=== PATIENT | female | born 1990 | race Hispanic/Latino ===

== ENCOUNTER 2025-02-16 12:12 | Outpatient (CLI) | payer MEDICAID, SELFPAY ==
--- OUTSIDE RECORDS SUMMARY | 2025-02-16 13:17 | XMS_ITS | Clinical Summary ---
Author Organization [facility] Address [address] [place] [id number] Care Team Providers Care Security System Installer Name Role Phone No, Physician Primary Care Provider [phone] Allergies No known active allergies Medications triamcinolone (KENALOG) 0.1 % ointmentIndicat ions:Vulvar pruritus Apply topically 2 (two) times a day Apply 1-2 times to affected area as needed for itching 30 g 1 Active Active Problems No known active problems Family History Medical History Relation Name Comments No Known Problems Father No Known Problems Mother Relation Name Status Comments Father Mother Social History Tobacco Use Types Packs/Day Years Used Date Smoking Tobacco: Never Personal Safety Answer Date Recorded Getting School Help Needed Not on file 12/21 Comments Unknown Sex and Gender Information Value Date Recorded Sex Assigned at Not on file Legal Sex Female 9:41 AM OPERATIONS ENGINEER Gender Identity Female 11/28/2020 9:46 AM OPERATIONS ENGINEER Sexual Orientation Not on file Obstetrics History Para Term AB IAB SAB Ectopic Multiple Livin g Live Births 3 3 3 3 3 Date Outcome GA Total Labor Labor/2nd/3rd Weight Sex Type Anes PTL Melissa A1 A5 Name Clin 2003 Term F Vag-S pont Living 2008 Term F Vag-S pont Living 2010 Term M Vag-S pont Living Last Filed Vital Signs Vital Sign Reading Time Taken Comments Blood Pressure 126/82 12/15/2020 3:08 PM OPERATIONS ENGINEER Pulse - - Temperature - - Respiratory Rate - - Oxygen Saturation - - Inhaled Oxygen Concentration - - Weight 57.3 kg (126 lb 4 oz) 12/15/2020 3:08 PM OPERATIONS ENGINEER Height 152.4 cm (5') 12/15/2020 3:08 PM OPERATIONS ENGINEER Body Mass Index 24.66 12/15/2020 3:08 PM OPERATIONS ENGINEER Plan of Treatment Not on file Care Teams Security System Installer Relationship Specialty Start Date End Date No, Physician PCP - General 11/28/20
--- OUTSIDE RECORDS SUMMARY | 2025-02-16 13:17 | XMS_ITS | Continuity of Care Document ---
Author Organization [facility] Address [address] [place] [address] Phone Care Team Providers Care Highway Patrol Pilot Name Role Phone Unavailable Unavailable Unavailable Allergies, Adverse Reactions, Alerts Substance Reaction Status Criticality No Known Allergies Active No Inform ation Medications Medication Instructions Dosage Effective Dates (start - stop) Status Comments No Drug Therapy Prescribed Procedures Procedure Date AZITHROMYCIN DIHYDRATE, ORAL, CAPSULES/P OWDER, 1 GRAM OFFICE/OUTPATIENT VISIT, EST Alcohol and/or drug screening 5 URINE TEST, BY VISUAL COLOR CO MPARISON METHODS Results Test Name Date and Time Measure Units Reference Range Abnormal Flag Status Comments Panel Description: CHLAMYDIA/N. GONORRHOEAE RNA, TMA Final CHLAMYDIA TRACHOMATIS RNA, TMA 2014 14:34:0 0 DETECTED NOT DETECTED A Final A positive CT or NG Nucleic Acid Amplification Test(NAAT) result should be interpreted in conjunctionwith other laboratory and clinical data available tothe clinician. If clinically indicated, further testing can be performed on the same sample usingan alternate molecular target. To order alternatetarget test use 44883 (C. trachomatis) [place] 50877 (N. gonorrhoeae). NEISSERIA GONORRHOEAE RNA, TMA 2014 14:34:0 0 NOT DETECTED NOT DETECTED N Final [id number] 2014 14:34:0 0 SEE NOTE Final This test was performed using the APTIMA COMBO2 Assay([employer] The analytical performance characteristics of this assay, when used to test SurePath specimens havebeen determined by [employer]. Test performed at [facility] [id number] [place] [id number]: NATE RASHID DO,MPH Panel Description: Trichomon as vaginalis rRNA [Presence] in Specimen by CHAD with probe detection Final SURESWAB(R) TRICHOMONAS VAGINALIS RNA, QL, TMA 2014 14:34:0 0 NOT DETECTED NOT DETECTED N Final This test was performed using the APTIMA(R) Trichomonasvaginalis assay ([employer]Probe(R)). For more information on this test, go to:http://education.[employer]/f aq/TrichomonastmaTest performed at [facility] [id number] [place] [id number]: NATE RASHID DO,MPH Panel Description: HCG ( Test) - Urine - POC Final - Urine 2014 16:23:1 1 Negative Negative Final Advance Directives Directive Yes / No Effective Date File Name No Information Encounters Encounter Description Practice Location Reason(s) For Visit Diagnoses Date Provider Providers Copied on Encounter OFFICE/OUTPA TIENT VISIT, EST [email or web address], [address], [place], [place], [id number] , tel:[phone] Giuliana On Gala STI exposure (chief complaint) ChlamydiaScreening for alcoholism 5 No Information Family History Family Member Type Diagnosis Age At Onset No Information Payers Payer name Insurance type Covered libertarian ID Authoriza tion(s) No Information Social History Type Description Quantity Date Captured Comments Alcohol Use Details No Caffeine Use Details Unknown Tobacco Use Status Never smoked tobacco 2014 Smoking Status Never smoker Non-Smoking Tobacco Use Details : No Details Available : No Details Available Sex Female Vital Signs Date / Time: Height Weight BMI Pulse Rate Blood Pressure Temperature Respiratory Rate Body Surface Area Head Circumference Head Circ. Percentile Wt./[place]. Percentile BMI percentile Pulse Ox Inhaled Ox 4:01 PM 50.802 kg (112.00 lbs) 66 /min 101/62 mm[Hg] Chief Complaint And Reason For Visit From encounter dated '04/08/2015 15:45'. STI exposure (chief complaint). Description: Patient here because her partner was positive for chlamydia.LMP: 1 month ago.Patient does not use control.Patient denies abnormal vaginal discharge and pelvic pain. Reason For Referral Reason For Referral No Information History Of Present Illness Encounter Date Complaint History Of Prese nt Illness STI exposure Patient here joshua tijer[place] her partner was positive for chlamydia.LMP: 1 month ago.Patient does not use control.Patient denies abnormal vaginal discharge and pelvic pain. Functional Status Date Functional Assessmen t Pain Score 0/10 Medications Administered Medication Instructions Dosage Effective Dates (start - stop) Status Comments No Drug Therapy Prescribed Instructions Date Instruction Additional Infor mation Gonorrhea, chlamydia , trichomonas test ordered today.Chlamydia educational information discussed and handout given.1 G azithromycin given in office today.Avoid sexual intercourse for 7 days. Related to Chlamydia Safe sexual practices discussed with patient. Related to Chlamydia Assessments Type Assessment Date assessment Chlamydia assessment Screening for alcoholism 2014 Mental Status Date Cognitive Assessment Orientation - [place] ed to time, place, person, situation. Patient Care Teams Name Effective Dates (start - stop) Status Members No Information
--- OUTSIDE RECORDS SUMMARY | 2025-02-16 13:17 | XMS_ITS | Referral Summary ---
Author Organization [facility] Address [address] [place] [id number] Care Team Providers Care Sink Maker Name Role Phone No, Physician Primary Care Provider [phone] Allergies No known active allergies Medications triamcinolone (KENALOG) 0.1 % ointmentIndicat ions:Vulvar pruritus Apply topically 2 (two) times a day Apply 1-2 times to affected area as needed for itching 30 g 1 Active Active Problems No known active problems Social History Tobacco Use Types Packs/Day Years Used Date Smoking Tobacco: Never Personal Safety Answer Date Recorded Getting School Help Needed Not on file 12/21 Comments Unknown Sex and Gender Information Value Date Recorded Sex Assigned at Not on file Legal Sex Female 9:41 AM TARGETEER Gender Identity Female 11/28/2020 9:46 AM TARGETEER Sexual Orientation Not on file Last Filed Vital Signs Vital Sign Reading Time Taken Comments Blood Pressure 126/82 12/15/2020 3:08 PM TARGETEER Pulse - - Temperature - - Respiratory Rate - - Oxygen Saturation - - Inhaled Oxygen Concentration - - Weight 57.3 kg (126 lb 4 oz) 12/15/2020 3:08 PM TARGETEER Height 152.4 cm (5') 12/15/2020 3:08 PM TARGETEER Body Mass Index 24.66 12/15/2020 3:08 PM TARGETEER Plan of Treatment Not on file Care Teams Sink Maker Relationship Specialty Start Date End Date No, Physician PCP - General 11/28/20
--- OUTSIDE RECORDS SUMMARY | 2025-02-16 13:17 | XMS_ITS | Data Portability ---
Author Organization SNEHA SILVERDhara Address [address] [place] [address] Assessment No assessment recorded. Plan of Treatment Reminders Order Date Submit Date Provider Last Modified By Organization Details Last Modified Time Details Appointments None recorded . Lab urinalys is, dipstick 2024 025 [email or web address] In-Office Order, Internal Use Only DO Not Attach Compendium DO Not Attach Compendium, Do Not Delete/merge, [id number] 17:46:04 urinalys is, dipstick 2024 025 [email or web address] In-Office Order, Internal Use Only DO Not Attach Compendium DO Not Attach Compendium, Do Not Delete/merge, [id number] 17:39:04 pap, IG + HPV, cervical 2024 025 SARA [facility], [address], [place], [address], 5 11:20:52 vaginal pathogen s panel, CHAD+prob e, vaginal fluid 2024 025 SARA [facility], [address], [place], [address], 5 09:13:20 pregnanc y test, urine 2024 025 In-Office Order, Internal Use Only DO Not Attach Compendium DO Not Attach Compendium, Do Not Delete/merge, [id number] 17:33:31 CBC w/ auto diff 2024 025 [facility], [address], [address], [place], [address], 5 19:08:51 culture, urine 2024 025 [facility], [address], [address], [place], [address], 5 19:08:56 hemoglob in (Hb) electrop horesis, blood 2024 025 [facility], [address], [address], [place], [address], 5 19:08:46 HIV 1 + 2, meaningf ul use set 2024 025 [facility], [address], [place], [address], 5 19:08:57 CFTR mutation , blood or tissue 2024 025 [facility], [address], [place], [address], 5 19:08:50 aneuploi dy risk and X & Y analysis , chromoso me specific circulat ing cell free (CCF) DNA, maternal serum 2024 025 [facility], [address], [place], [address], 5 19:09:00 abo group + rh type, blood 2024 025 SARA [facility], [address], [place], [address], 5 19:08:52 drug screen, 5 drugs, urine [address], [address], [place], [address], 5 15:46:16 rubella IgG Ab, quant immunoas say, serum or plasma 2024 025 [facility], [address], [place], [address], 5 19:08:54 RPR (rapid plasma reagin), serum 2024 025 [facility], [address], [place], [address], 5 19:08:53 varicell a zoster virus IgG Ab, QL, IA, serum 2024 025 [facility], [address], [place], [address], 5 19:08:58 vaginal pathogen s panel, CHAD+prob e, vaginal fluid 2024 025 [facility], [address], [place], [address], 5 19:08:48 hepatiti s panel (A+B+C), acute, serum 2024 025 [facility], [address], [place], [address], 5 19:08:47 urinalys is, dipstick 2024 025 In-Office Order, Internal Use Only DO Not Attach Compendium DO Not Attach Compendium, Do Not Delete/merge, [id number] 17:45:27 unlisted lab - nuswab bv, CT/GC/TV 2023 024 [facility], [address], [place], [address], 4 08:25:58 pap, IG + reflex HPV 2023 024 [facility], [address], [place], [address], 4 15:10:37 ESR (erythro cyte sediment ation rate), blood 2022 023 [facility], [address], [place], [address], 3 13:10:20 vitamin D, 25-hydro xy, total, serum 2022 023 [facility], [address], [place], [address], 3 13:10:22 JOSI (antinuc lear antibodi es) screen, serum 2022 023 [facility], [address], [place], [address], 3 13:10:19 CBC 2022 023 [facility], [address], [place], [address], 3 13:10:21 CMP, serum or plasma 2022 023 [facility], [address], [place], [address], 3 13:10:19 Referral obstetri blas referral 2024 025 SARA Shukla MD, [address], [address], [place], [address], 5 04:14:52 maternal & medicine referral - Genetic counseli ng 2024 025 [email or web address] [facility], [address] [place], [address], 14:33:44 Procedures None recorded . Surgeries None recorded . Imaging US, obstetri c, 1st trimeste r 2024 025 [facility] ([facility]), [address] [place], [address], 5 15:00:33 Medication Orders ondanset pepe 8 mg disinteg rating tablet 2024 025 [id number], [address], [place], [id number], 5 17:39:10 ondanset pepe 4 mg disinteg rating tablet 2024 025 [facility][id number], [address], [place], [id number], 5 17:46:46 28 mg iron-800 mcg tablet 2024 025 [facility] #[id number], [address], [place], [id number], 5 17:33:36 naproxen 500 mg tablet 2022 023 [facility][id number], [address], [place], [id number], 5 17:00:23 Patient TargetsNo targets recorded. Patient Instructions Encounter Date Encounter Id Patient Instructions Last Modified By Organization Details Last Modified Time 08/05/2023 [id number] subha laurent el peso saludable - [learning about healthy weight] [email or web address] Not available 08/05/2023 14:43:15 A healthy lifestyle: care instructions [email or web address] Not available 08/05/2023 14:43:45 11/03/2024 [id number] N useas y v deangelo: instrucciones de cuidado - [nausea and vomiting: care instructions] [email or web address] Not available 11/03/2024 17:46:40 A healthy lifestyle: care instructions [email or web address] Not available 11/03/2024 17:33:31 Edad materna avanzada: Instrucciones de cuidado - [ After Age 35: Care Instructions] [email or web address] Not available 11/03/2024 17:33:31 --Discussed with Dr. Cande che Not available 11/24/2024 16:29:36 11/24/2024 [id number] A healthy lifestyle: care instructions Not available 11/24/2024 17:39:04 --Discussed with Dr. Cande che Not available 11/25/2024 18:22:41 01/13/2025 [id number] A healthy lifestyle: care instructions [email or web address] Not available 01/13/2025 17:45:18 Reason for Referral Maternal & Medicine Re ferral for Advanced maternal age Genetic counseling Referring Physician: [facility], Encounter Date: 11/03/2024 [employer] Technologist Referral for [place] care Referring Physician: Zurdo Raymond [facility], Encounter Date: 01/13/2025 Results Created Date Observation Date Name Description Value Unit Range Abnormal Flag Note LastModifiedBy Organization Detail LastModifiedTime 08/05/2008/06/2023 JOSI W/REF BUCK JOSI direct Negati ve negati ve Not Available [facility] ([facility]) [address] [place], [address], 08/06/2023 13:10:19 08/05/20 23 08/06/2023 COMP. METAB OLIC PANEL (14) glucose 85 mg/dL 70-99 Not Available [facility] ([facility]) [address] [place], [address], 08/06/2023 13:10:19 08/05/20 23 08/06/2023 COMP. METAB OLIC PANEL (14) BUN 14 mg/dL 6-20 Not Available [facility] ([facility]) [address] [facility] [place], [address], 08/06/2023 13:10:19 08/05/20 23 08/06/2023 COMP. METAB OLIC PANEL (14) creatinine 0.59 mg/dL 0.57-1 .00 Not Available [facility] ([facility]) [address] [facility] [place], [address], 08/06/2023 13:10:19 08/05/20 23 08/06/2023 COMP. METAB OLIC PANEL (14) eGFR 121 mL/mi n/1.7 3 >59 Not Available [facility] ([facility]) [address] [facility] [place], [address], 08/06/2023 13:10:19 08/05/20 23 08/06/2023 COMP. METAB OLIC PANEL (14) BUN/creatini ne ratio 24 9-23 above high normal Not Available [facility] ([facility]) [address] [facility] [place], [address], 08/06/2023 13:10:19 08/05/20 23 08/06/2023 COMP. METAB OLIC PANEL (14) sodium 140 mmol/ L 134-14 4 Not Available [facility] ([facility]) [address] [place], [address], 08/06/2023 13:10:19 08/05/20 23 08/06/2023 COMP. METAB OLIC PANEL (14) potassium 4.0 mmol/ L 3.5-5. 2 Not Available [facility] ([facility]) [address] [place], [address], 08/06/2023 13:10:19 08/05/20 23 08/06/2023 COMP. METAB OLIC PANEL (14) chloride 102 mmol/ L 96-106 Not Available [facility] ([facility]) [address] [place], [address], 08/06/2023 13:10:19 08/05/20 23 08/06/2023 COMP. METAB OLIC PANEL (14) carbon dioxide, total 23 mmol/ L 20- Not Available [facility] ([facility]) [address], [place], [address], 08/06/2023 13:10:19 08/05/20 23 08/06/2023 COMP. METAB OLIC PANEL (14) calcium 8.9 mg/dL 8.7-10 .2 Not Available [facility] ([facility]) [address] [facility] [place], [address], 08/06/2023 13:10:19 08/05/20 23 08/06/2023 COMP. METAB OLIC PANEL (14) protein, total 7.0 g/dL 6.0-8. 5 Not Available [facility] ([facility]) [address] [facility], [place], [address], 08/06/2023 13:10:19 08/05/20 23 08/06/2023 COMP. METAB OLIC PANEL (14) albumin 4.2 g/dL 3.9-4. 9 Not Available [facility] ([facility]) [address] [facility], [place], [address], 08/06/2023 13:10:19 08/05/20 23 08/06/2023 COMP. METAB OLIC PANEL (14) globulin, total 2.8 g/dL 1.5-4. 5 Not Available [facility] ([facility]) [address] [facility] [place], [address], 08/06/2023 13:10:19 08/05/20 23 08/06/2023 COMP. METAB OLIC PANEL (14) A/G ratio 1.5 1.2-2. 2 Not Available [facility] ([facility]) [address] [facility], [place], [address], 08/06/2023 13:10:19 08/05/20 23 08/06/2023 COMP. METAB OLIC PANEL (14) bilirubin, total <0.2 mg/dL 0.0-1. 2 Not Available [facility] ([facility]) [address] [facility], [place], [address], 08/06/2023 13:10:19 08/05/2008/06/2023 COMP. METAB OLIC PANEL (14) alkaline phosphatase 64 IU/L 44-121 Not Available [facility] ([facility]) [address] [facility], [place], [address], 08/06/2023 13:10:19 08/05/2008/06/2023 COMP. METAB OLIC PANEL (14) AST (SGOT) 23 IU/L 0-40 Not Available [facility] ([facility]) [address] [facility], [place], [address], 08/06/2023 13:10:19 08/05/2008/06/2023 COMP. METAB OLIC PANEL (14) ALT (SGPT) 15 IU/L 0-32 Not Available [facility] ([facility]) [address] [facility], [place], [address], 08/06/2023 13:10:19 08/05/2008/06/2023 SEDIM ENTAT ION RATE- WESTE RGREN sedimentatio n rate-huyenerg meghan 12 mm/HR 0-32 Not Available [facility] ([facility]) [address] [facility], [place], [address], 08/06/2023 13:10:20 08/05/2008/06/2023 CBC, PLATE LET, NO DIFFE RENTI AL WBC 8.7 x10e3 /uL 3.4-10 .8 Not Available [facility] ([facility]) [address] [facility], [place], [address], 08/06/2023 13:10:21 08/05/2008/06/2023 CBC, PLATE LET, NO DIFFE RENTI AL RBC 4.23 x10e6 /uL 3.77-5 .28 Not Available [facility] ([facility]) [address] [facility], [place], [address], 08/06/2023 13:10:21 08/05/2008/06/2023 CBC, PLATE LET, NO DIFFE RENTI AL hemoglobin 12.2 g/dL 11.1-1 5.9 Not Available [facility] ([facility]) [address] [facility], [place], [address], 08/06/2023 13:10:21 08/05/2008/06/2023 CBC, PLATE LET, NO DIFFE RENTI AL hematocrit 36.9 % 34.0-4 6.6 Not Available [facility] ([facility]) [address] [facility], [place], [address], 08/06/2023 13:10:21 08/05/2008/06/2023 CBC, PLATE LET, NO DIFFE RENTI AL MCV 87 fL 79-97 Not Available [facility] ([facility]) [address] [facility], [place], [address], 08/06/2023 13:10:21 08/05/2008/06/2023 CBC, PLATE LET, NO DIFFE RENTI AL MCH 28.8 pg 26.6-3 3.0 Not Available [facility] ([facility]) [address] [place], [address], 08/06/2023 13:10:21 08/05/2008/06/2023 CBC, PLATE LET, NO DIFFE RENTI AL MCHC 33.1 g/dL 31.5-3 5.7 Not Available [facility] ([facility]) [address] [facility], [place], [address], 08/06/2023 13:10:21 08/05/2012 0808/06/2023 CBC, PLATE LET, NO DIFFE RENTI AL RDW 12.4 % 11.7-1 5.4 Not Available [facility] ([facility]) [address] [facility], [place], [address], 08/06/2023 13:10:21 08/05/20 23 08/06/2023 CBC, PLATE LET, NO DIFFE RENTI AL platelets 259 x10e3 /uL 150-45 0 Not Available [facility] ([facility]) [address] [facility], [place], [address], 08/06/2023 13:10:21 08/05/2008/06/2023 VITAM IN D, 25-HY DROXY vitamin D, 25-hydroxy 22.1 NG/mL 30.0-1 00.0 below low normal Vitam in D defic iency has been defin ed by the Insti tute of Medic ine and an Endoc rine Socie ty pract ice guide line as a level of serum 25-OH vitam in D less than 20 ng/mL (1,2) . The Endoc rine Socie ty went on to furth er defin e vitam in D insuf ficie ncy as a level betwe en 21 and 29 ng/mL (2). 1. IOM (Inst itute of Medic ine). 2009. Dieta ry refer ence intak es for calci um and D. Erlinda bledsoe [place]: The [facility] . 2. Ed mccall MF, Jose steinberg [place], Zaheer off-F errar i AGUIAR, et al. Evalu ation , treat ment, and preve ntion of vitam in D defic iency : an Endoc rine Socie ty clini [place]or[place] pract ice guide line. JCEM. 2010; 96(7) :1911 -30. Not Available [facility] ([facility]) [address] [facility], [place], [address], 08/06/2023 13:10:22 01/07/20 24 01/08/2024 NUSWA B BV, CT/GC /TV atopobium vaginae Low - 0 score Not Available [facility] ([facility]) [address] [facility], [place], [address], 01/09/2024 08:25:58 01/07/20 24 01/08/2024 NUSWA B BV, CT/GC /TV bvab 2 Low - 0 score Not Available [facility] ([facility]) [address] [facility], [place], [address], 01/09/2024 08:25:58 01/07/20 24 01/08/2024 NUSWA B BV, CT/GC /TV megasphaera 1 Low - 0 score Calcu late total score by jomar power the 3 indiv idual bacte rial vagin osis (BV) marke r score s toget her. Total score is inter prete d as follo ws: Total score 0-1: Indic ates the absen ce of BV. Total score 2: Indet ermin ate for BV. Addit ional clini victorino data shoul d be evalu ated to estab maryjane a diagn osis. Total score 3-6: Indic ates the prese nce of BV. This test was devel oped and its perfo rmanc e vasyl cteri stics deter mined by [facility]. It has not been clear ed or appro justus by the Food and Drug Admin istra tion. Not Available [facility] ([facility]) [address] [facility], [place], [address], 01/09/2024 08:25:58 01/07/20 24 01/09/2024 NUSWA B BV, CT/GC /TV trich vag by CHAD Negati ve negati ve Not Available [facility] ([facility]) [address] [facility], [place], [address], 01/09/2024 08:25:58 01/07/20 24 01/09/2024 NUSWA B BV, CT/GC /TV chlamydia trachomatis, CHAD Negati ve negati ve Not Available [facility] ([facility]) [address] [facility], [place], [address], 01/09/2024 08:25:58 01/07/20 24 01/09/2024 NUSWA B BV, CT/GC /TV neisseria gonorrhoeae, CHAD Negati ve negati ve Not Available [facility] ([facility]) [address] [facility], [place], [address], 01/09/2024 08:25:58 01/07/20 24 01/07/2024 IGP,A PTIMA HPV,A GE GDLN age gdln acog testing 30-65 Not Available [facility] ([facility]) [address] [facility], [place], [address], 01/09/2024 15:10:37 01/07/20 24 01/09/2024 IGP, APTIM A HPV, RFX 16/18 ,45 diagnosis: Commen t NEGAT HANNAH FOR INTRA EPITH ELIAL LESIO N OR CLAUDIA BARKER . Not Available [facility] ([facility]) [address] [facility], [place], [address], 01/09/2024 15:10:37 01/07/20 24 01/09/2024 IGP, APTIM A HPV, RFX 16/18 ,45 specimen adequacy: Commen t Satis facto ry for evalu ation . Endoc ervic al and/o r squam ous metap lasti c cells (endo cervi victorino compo nent) are prese nt. Not Available [facility] ([facility]) [address] [facility], [place], [address], 01/09/2024 15:10:37 01/07/20 24 01/09/2024 IGP, APTIM A HPV, RFX 16/18 ,45 clinician provided ICD10: Commen t Z11.3 Z12.4 Not Available [facility] ([facility]) [address] [place], [address], 01/09/2024 15:10:37 01/07/20 24 01/09/2024 IGP, APTIM A HPV, RFX 16/18 ,45 performed by: Nasim Koehler Not Available [facility] ([facility]) [address] [place], [address], 01/09/2024 15:10:37 01/07/20 24 01/09/2024 IGP, APTIM A HPV, RFX 16/18 ,45 . . Not Available [facility] ([facility]) [address] [place], [address], 01/09/2024 15:10:37 01/07/20 24 01/09/2024 IGP, APTIM A HPV, RFX 16/18 ,45 note: Carole parisi The Pap smear is a scree art test desig slim to aid in the detec tion of kimberlee ligna nt and malig nant condi tions of the uteri ne cervi x. It is not a diagn ostic proce dure and shoul d not be used as the sole means of detec ting cervi victorino cance r. Both false -posi tive and false -nega tive repor ts do occur . Not Available [facility] ([facility]) [address] [place], [address], 01/09/2024 15:10:37 01/07/20 24 01/09/2024 IGP, APTIM A HPV, RFX 16/18 ,45 test methodology: Carole parisi This liqui d based ThinP rep(R ) pap test was scree slim with the use of an image guide anastasiia aranda. Not Available [facility] ([facility]) [address] [place], [address], 01/09/2024 15:10:37 01/07/20 24 01/09/2024 IGP, APTIM A HPV, RFX 16/18 ,45 HPV aptima Negati ve negati ve This nucle ic acid ampli ficat ion test detec ts fourt een high- risk HPV types (16,1 8,31, 33,35 ,39,4 5,51, 52,56 ,58,5 9,66, 68) witho ut diffe renti ation . Not Available [facility] ([facility]) [address] [facility], [place], [address], 01/09/2024 15:10:37 01/07/20 24 01/09/2024 IGP, APTIM A HPV, RFX 16/18 ,45 HPV genotype reflex Commen t Crite kimmie not met, HPV Genot ype not perfo rmed. Not Available [facility] ([facility]) [address] [facility], [place], [address], 01/09/2024 15:10:37 11/03/19 25 11/04/2024 SPECI MEN STATU S REPOR T specimen status report TNP Test not perfo rmed. No laven michell top tube submi tted. TEST: 46589 9 CBC With Diffe renti al/[place] t 495[address] 5 Cysti c Fibro sis, 97 [place] [address] 0 [place] [address] 9 ABO Group ing and Rho(D ) Typin g Not Available [facility] ([facility]) [address] [facility], [place], [address], 11/10/2024 19:08:43 11/03/19 25 11/04/[address] PROBL EM request problem TNP Test not perfo rmed. No serum gel recei justus. TEST: 82076 0 Acute Hepat itis 03879 7 Rubel la Antib odies , [place] [address] 5 HIV Ab/p2 4 Ag with Refle x 53379 6 Varic sheri- Zoste r V Ab, IgG 23789 2 RPR Not Available [facility] ([facility]) [address] [place], [address], 11/10/2024 19:08:44 11/03/19 25 11/04/[address] PROBL EM request problem TNP Test not perfo rmed. No urine speci men recei justus. TEST: 23739 2 81928 2 5 Drug- Scr Not Available [facility] ([facility]) [address] [place], [address], 11/10/2024 19:08:45 11/03/19 25 11/04/2024 HGB FRACT IONAT ION CASCA DE HGB F - % Test not perfo rmed. No laven michell top tube submi tted. Not Available [facility] ([facility]) [address] [facility], [place], [address], 11/10/2024 19:08:46 11/03/19 25 11/04/2024 HGB FRACT IONAT ION CASCA DE HGB A - Test not perfo rmed Not Available [facility] ([facility]) [address] [facility], [place], [address], 11/10/2024 19:08:46 11/03/19 25 11/04/2024 HGB FRACT IONAT ION CASCA DE HGB A2 - Test not perfo rmed Not Available [facility] ([facility]) [address] [place], [address], 11/10/2024 19:08:46 11/03/19 25 11/04/2024 HGB FRACT IONAT ION CASCA DE HGB S - Test not perfo rmed Not Available [facility] ([facility]) [address] [place], [address], 11/10/2024 19:08:46 11/03/19 25 11/04/2024 ACUTE HEPAT ITIS hep A Ab, IgM - Test not perfo rmed. No serum gel recei justus. Not Available [facility] ([facility]) [address] [place], [address], 11/10/2024 19:08:47 11/03/19 25 11/04/2024 ACUTE HEPAT ITIS HBsAg screen - Test not perfo rmed Not Available [facility] ([facility]) [address] [facility], [place], [address], 11/10/2024 19:08:47 11/03/19 25 11/04/2024 ACUTE HEPAT ITIS hep B core Ab, IgM - Test not perfo rmed Not Available [facility] ([facility]) [address] [facility], [place], [address], 11/10/2024 19:08:47 11/03/19 25 11/04/2024 ACUTE HEPAT ITIS HCV Ab - Test not perfo rmed Not Available [facility] ([facility]) [address] [facility], [place], [address], 11/10/2024 19:08:47 11/03/19 25 11/04/2024 NUSWA B VAGIN ITIS PLUS (VG+) atopobium vaginae LOW - 0 score Not Available [facility] ([facility]) [address] [facility], [place], [address], 11/10/2024 19:08:48 11/03/19 25 11/04/2024 NUSWA B VAGIN ITIS PLUS (VG+) bvab 2 LOW - 0 score Not Available [facility] ([facility]) [address] [place], [address], 11/10/2024 19:08:48 11/03/19 25 11/04/2024 NUSWA B VAGIN ITIS PLUS (VG+) megasphaera 1 LOW - 0 score Calcu late total score by jomar g the 3 indiv idual bacte rial vagin osis (BV) marke r score s toget her. Total score is inter prete d as follo ws: Total score 0-1: Indic ates the absen ce of BV. Total score 2: Indet ermin ate for BV. Addit ional clini victorino data shoul d be evalu ated to estab maryjane a diagn osis. Total score 3-6: Indic ates the prese nce of BV. Not Available [facility] ([facility]) [address] [facility], [place], [address], 11/10/2024 19:08:48 11/03/19 25 11/04/2024 NUSWA B VAGIN ITIS PLUS (VG+) renetta albicans, CHAD NEGATI VE negati ve Not Available [facility] ([facility]) [address] [facility], [place], [address], 11/10/2024 19:08:48 11/03/19 25 11/04/2024 NUA B VAGIN ITIS PLUS (VG+) renetta glabrata, CHAD NEGATI VE negati ve Not Available [facility] ([facility]) [address] [facility], [place], [address], 11/10/2024 19:08:48 11/03/19 25 11/04/2024 NUA B VAGIN ITIS PLUS (VG+) trich vag by CHAD NEGATI VE negati ve Not Available [facility] ([facility]) [address] [place], [address], 11/10/2024 19:08:48 11/03/19 25 11/04/2024 NUA B VAGIN ITIS PLUS (VG+) chlamydia trachomatis, CHAD NEGATI VE negati ve Not Available [facility] ([facility]) [address] [place], [address], 11/10/2024 19:08:48 11/03/19 25 11/04/2024 NUA B VAGIN ITIS PLUS (VG+) neisseria gonorrhoeae, CHAD NEGATI VE negati ve Not Available [facility] ([facility]) [address] [place], [address], 11/10/2024 19:08:48 11/03/19 25 11/04/2024 CYSTI C FIBRO SIS, 97 VARIA NTS ethnicity TNP Test not perfo rmed. No laven michell top tube submi tted. Not Available [facility] ([facility]) [address] [facility], [place], [address], 11/10/2024 19:08:49 11/03/1911/04/2024 CYSTI C FIBRO SIS, 97 VARIA NTS result: - Test not perfo rmed Not Available [facility] ([facility]) [address] [facility], [place], [address], 11/10/2024 19:08:49 11/03/19 25 11/04/2024 CBC WITH DIFFE RENTI AL/PL ATELE T WBC - x10e3 /uL Test not perfo rmed. No laven michell top tube submi tted. Not Available [facility] ([facility]) [address] [facility], [place], [address], 11/10/2024 19:08:51 11/03/19 25 11/04/2024 CBC WITH DIFFE RENTI AL/PL ATELE T RBC - Test not perfo rmed Not Available [facility] ([facility]) [address] [place], [address], 11/10/2024 19:08:51 11/03/19 25 11/04/2024 CBC WITH DIFFE RENTI AL/PL ATELE T hemoglobin - Test not perfo rmed Not Available [facility] ([facility]) [address] [place], [address], 11/10/2024 19:08:51 11/03/1911/04/2024 CBC WITH DIFFE RENTI AL/PL ATELE T hematocrit - Test not perfo rmed Not Available [facility] ([facility]) [address] [place], [address], 11/10/2024 19:08:51 11/03/19 25 11/04/2024 CBC WITH DIFFE RENTI AL/PL ATELE T platelets - Test not perfo rmed Not Available [facility] ([facility]) [address] [facility] [place], [address], 11/10/2024 19:08:51 11/03/19 25 11/04/2024 CBC WITH DIFFE RENTI AL/PL ATELE T neutrophils - Test not perfo rmed Not Available [facility] ([facility]) [address] [facility], [place], [address], 11/10/2024 19:08:51 11/03/19 25 11/04/2024 CBC WITH DIFFE RENTI AL/PL ATELE T lymphs - Test not perfo rmed Not Available [facility] ([facility]) [address] [facility], [place], [address], 11/10/2024 19:08:51 11/03/19 25 11/04/2024 CBC WITH DIFFE RENTI AL/PL ATELE T monocytes - Test not perfo rmed Not Available [facility] ([facility]) [address] [facility], [place], [address], 11/10/2024 19:08:51 11/03/19 25 11/04/2024 CBC WITH DIFFE RENTI AL/PL ATELE T eos - Test not perfo rmed Not Available [facility] ([facility]) [address] [facility], [place], [address], 11/10/2024 19:08:51 11/03/19 25 11/04/2024 CBC WITH DIFFE RENTI AL/PL ATELE T lymphs (absolute) - Test not perfo rmed Not Available [facility] ([facility]) [address] [facility], [place], [address], 11/10/2024 19:08:51 11/03/19 25 11/04/2024 CBC WITH DIFFE RENTI AL/PL ATELE T eos (absolute) - Test not perfo rmed Not Available [facility] ([facility]) [address] [facility], [place], [address], 11/10/2024 19:08:51 11/03/19 25 11/04/2024 CBC WITH DIFFE RENTI AL/PL ATELE T baso (absolute) - Test not perfo rmed Not Available [facility] ([facility]) [address] [facility], [place], [address], 11/10/2024 19:08:51 11/03/19 25 11/04/2024 ABO GROUP ING AND RHO(D ) TYPIN G ABO grouping - Test not perfo rmed. No laven michell top tube submi tted. Not Available [facility] ([facility]) [address] [place], [address], 11/10/2024 19:08:52 11/03/19 25 11/04/2024 ABO GROUP ING AND RHO(D ) TYPIN G Rh factor - Test not perfo rmed Not Available [facility] ([facility]) [address] [place], [address], 11/10/2024 19:08:52 11/03/19 25 11/04/2024 RPR RPR - Test not perfo rmed. No serum gel recei justus. Not Available [facility] ([facility]) [address] [place], [address], 11/10/2024 19:08:53 11/03/19 25 11/04/2024 RUBEL LA ANTIB ODIES , IGG rubella antibodies, IgG - index Test not perfo rmed. No serum gel recei justus. Non-i mmune <0.90 Equiv ocal 0.90 - 0.99 Immun e >0.99 Not Available [facility] ([facility]) [address] [place], [address], 11/10/2024 19:08:54 11/03/19 25 11/06/2024 URINE CULTU RE,CO MPREH ENSIV E urine culture,comp rehensive FINAL REPORT Not Available [facility] ([facility]) [address] [place], [address], 11/10/2024 19:08:56 11/03/19 25 11/06/2024 URINE CULTU RE,CO MPREH ENSIV E result 1 COMMEN T No growt h in 36 - 48 hours . Not Available [facility] ([facility]) [address] [facility], [place], [address], 11/10/2024 19:08:56 11/03/19 25 11/04/2024 HIV AB/P2 4 AG WITH REFLE X HIV Ab/P24 Ag screen - Test not perfo rmed. No serum gel recei justus. Not Available [facility] ([facility]) [address] [facility], [place], [address], 11/10/2024 19:08:57 11/03/19 25 11/04/2024 VARIC SHERI- ZOSTE R V AB, IGG varicella zoster IgG - Test not perfo rmed. No serum gel recei justus. Ple ase note refer ence inter yony inman e A React hannah resul t is consi dered evide nce of immun ity to VZV. React hannah indic ates that VZV IgG was detec evelina consi stent with previ ous infec tion and/o r vacci natio n. A Non React hannah resul t indic ates that VZV IgG was not detec evelina sugge sting that immun ity has not been acqui red. Not Available [facility] ([facility]) [address] [facility], [place], [address], 11/10/2024 19:08:58 11/03/19 25 11/03/2024 urina lysis , dipst ick Leukocytes Negati ve Not Available In-Office Order Internal Use Only DO Not Attach Compendium DO Not Attach Compendium, Do Not Delete/merge, [id number] 11/03/2024 17:32:01 11/03/19 25 11/03/2024 urina lysis , dipst ick Nitrite negati ve Not Available In-Office Order Internal Use Only DO Not Attach Compendium DO Not Attach Compendium, Do Not Delete/merge, 11/03/2024 17:32:01 11/03/1911/03/2024 urina lysis , dipst ick Urobilinogen .2 Not Available In-Of fice Order Internal Use Only DO Not Attach Compendium DO Not Attach Compendium, Do Not Delete/merge, 11/03/2024 17:32:01 11/03/1911/03/2024 urina lysis , dipst ick Protein Negati ve Not Available In-Office Order Internal Use Only DO Not Attach Compendium DO Not Attach Compendium, Do Not Delete/merge, 11/03/2024 17:32:01 11/03/19 25 11/03/2024 urina lysis , dipst ick pH 6.5 Not Available In-Office Order Internal Use Only DO Not Attach Compendium DO Not Attach Compendium, Do Not Delete/merge, 11/03/2024 17:32:01 11/03/19 25 11/03/2024 urina lysis , dipst ick Blood Negati ve Not Available In-Office Order Internal Use Only DO Not Attach Compendium DO Not Attach Compendium, Do Not Delete/merge, 11/03/2024 17:32:01 11/03/19 25 11/03/2024 urina lysis , dipst ick Specific [place] 1.030 Not Available In-Off ice Order Internal Use Only DO Not Attach Compendium DO Not Attach Compendium, Do Not Delete/merge, 11/03/2024 17:32:01 11/03/19 25 11/03/2024 urina lysis , dipst ick Ketone Negati ve Not Available In-Office Order Internal Use Only DO Not Attach Compendium DO Not Attach Compendium, Do Not Delete/merge, 11/03/2024 17:32:01 11/03/19 25 11/03/2024 urina lysis , dipst ick Bilirubin Negati ve Not Available In-Office Order Internal Use Only DO Not Attach Compendium DO Not Attach Compendium, Do Not Delete/merge, 11/03/2024 17:32:01 01/14/11/03/2024 urina lysis , dipst ick Glucose Negati ve Not Available In-Office Order Internal Use Only DO Not Attach Compendium DO Not Attach Compendium, Do Not Delete/merge, 11/03/2024 17:32:01 11/03/19 25 11/03/2024 urina lysis , dipst ick Appearance Clear Not Available In-Offi ce Order Internal Use Only DO Not Attach Compendium DO Not Attach Compendium, Do Not Delete/merge, 11/03/2024 17:32:01 11/03/19 25 11/03/2024 urina lysis , dipst ick Color Yellow Not Available In-Office Order Internal Use Only DO Not Attach Compendium DO Not Attach Compendium, Do Not Delete/merge, 11/03/2024 17:32:01 11/03/1911/03/2024 pregn mary beth test, urine HCG positi ve Not Available In-Office Order Internal Use Only DO Not Attach Compendium DO Not Attach Compendium, Do Not Delete/merge, 11/03/2024 17:12:57 11/05/1911/09/2024 MATER NIT21 PLUS CORE gestation SINGLE TON Not Available [facility] ([facility]) [address] [place], [address], 11/09/2024 19:09:00 11/05/19 25 11/09/2024 MATER NIT21 PLUS CORE fraction 29% Not Available [facility] ([facility]) [address] [place], [address], 11/09/2024 19:09:00 11/05/19 25 11/09/2024 MATER NIT21 PLUS CORE gestational age > or = 9W: YES Not Available [facility] ([facility]) [address] [place], [address], 11/09/2024 19:09:00 11/05/19 25 11/09/2024 MATER NIT21 PLUS CORE test result NEGATI VE Not Available [facility] ([facility]) [address] [place], [address], 11/09/2024 19:09:00 11/05/19 25 11/09/2024 MATER NIT21 PLUS CORE lab systems analyst comments CAROLE Farmer speci men showe d an expec evelina repre senta tion of chrom osome 21, 18 and 13 mater ial. [facility] corre latio n is sugguille ricod. Not Available [facility] ([facility]) [address] [facility], [place], [address], 11/09/2024 19:09:00 11/05/19 25 11/09/2024 MATER NIT21 PLUS CORE approved by CAROLE edmondson MD, PhD, [facility], [place] Labor atori es Not Available [facility] ([facility]) [address] [facility], [place], [address], 11/09/2024 19:09:00 11/05/19 25 11/09/2024 MATER NIT21 PLUS CORE trisomy 21 (down syndrome) NEGATI VE Not Available [facility] ([facility]) [address] [facility], [place], [address], 11/09/2024 19:09:00 11/05/19 25 11/09/2024 MATER NIT21 PLUS CORE trisomy 18 (smith syndrome) NEGATI VE Not Available [facility] ([facility]) [address] [place], [address], 11/09/2024 19:09:00 11/05/19 25 11/09/2024 MATER NIT21 PLUS CORE trisomy 13 (patau syndrome) NEGATI VE Not Available [facility] ([facility]) [address] [facility], [place], [address], 11/09/2024 19:09:00 11/05/19 25 11/09/2024 MATER NIT21 PLUS CORE sex CAROLE Parisi Consi stent with Male Not Available [facility] ([facility]) [address] [place], [address], 11/09/2024 19:09:00 11/05/19 25 11/09/2024 MATER NIT21 PLUS CORE negative predictive value NOTE The Negat hannah Predi ctive Value (NPV) for triso my 21, 18, and 13 is great er than 99%. The NPV for SCA and ESS canno t be calcu lated as SCA and ESS are only repor evelina when an abnor malit y is detec evelina. Not Available [facility] ([facility]) [address] [facility], [place], [address], 11/09/2024 19:09:00 11/05/19 25 11/09/2024 MATER NIT21 PLUS CORE positive predictive value N/A Not Available [facility] ([facility]) [address] [facility], [place], [address], 11/09/2024 19:09:00 11/05/19 25 11/09/2024 MATER NIT21 PLUS CORE about the test COMMEN T The Mater niT(R ) 21 PLUS labor atory -deve loped test (LDT) galina zes circu latin g cell- free DNA from a mater nal blood sampl e. This test is used for scree art purpo ses and not diagn ostic . [facility] corre latio n is recom xenia d. Valid ation data on twin pregn ancie s is limit ed and the abili ty of this test to detec t aneup loidy in highe r multi ple gesta tions has not yet been valid ated. Not Available [facility] ([facility]) [address] [facility], [place], [address], 11/09/2024 19:09:00 11/05/19 25 11/09/2024 MATER NIT21 PLUS CORE test method COMMEN T See Notes Circu latin g cell- free DNA was purif ied from the plasm a compo nent of mater nal blood . The extra cted DNA was then conve rted into a mktg DNA ken ry for aneup loidy galina sis of chrom osome s 21, 18, and 13 via next gener ation seque ncing .[1] Optio nal findi ngs based on the test order inclu de sex chrom osome aneup loidy (SCA) [2], and enhan antonio seque ncing serie s (ESS) [3], which will only be repor evelina on as an addit ional findi ng when an abnor malit y is detec evelina. SCA testi ng inclu demetrio infor matio n on X and Y repre senta tion, while ESS testi ng inclu demetrio delet ions in selec evelina regio ns (22q, 15q, 11q, 8q, 5p, 4p, 1p) and triso my of chrom osome s 16 and 22. Not Available [facility] ([facility]) [address] [facility], [place], [address], 11/09/2024 19:09:00 11/05/19 25 11/09/2024 MATER NIT21 PLUS CORE performance COMMEN T The perfo rmanc e vasyl cteri stics of the Mater niT(R ) 21 PLUS labor atory -deve loped test (LDT) have been deter mined in a clini victorino valid ation study with pregn ant women at incre ased risk for chrom osoma l aneup loidy .[1-4 ] Not Available [facility] ([facility]) [address] [facility], [place], [address], 11/09/2024 19:09:00 11/05/1911/09/2024 MATER NIT21 PLUS CORE performance characterist ics NOTE ----- ----- ----- ----- ----- ----- ----- ----- ----- ----- ----- ---- ! Sex ! Accur acy: 99.4% ! !---- ----- ----- ----- ----- ----- ----- ----- ----- ----- ----- ---! ! Regio n (vee crespo d syndr ome) ! Est. Sens# ! Est. Spec ! !---- ----- ----- ----- ----- ----- ----- ----- ----- ----- ----- ---! ! Maria D my 21 (Down Syndr ome) ! 99.1% ! 99.9% ! !---- ----- ----- ----- ----- ----- ----- ----- ----- ----- ----- ---! ! Tyrellradhames my 18 (Edwa rds Syndr ome) ! >99.9 % ! 99.6% ! !---- ----- ----- ----- ----- ----- ----- ----- ----- ----- ----- ---! ! Maria D my 13 (Pata u Syndr ome) ! 91.7% ! 99.7% ! !---- ----- ----- ----- ----- ----- ----- ----- ----- ----- ----- ---! ! Sex Chrom osome Aneup roberto es## ! 96.2% ! 99.7% ! !---- ----- ----- ----- ----- ----- ----- ----- ----- ----- ----- ---! * As saranya hoyt in ISCA datab ase nstd3 7 [http s://raudel flores.jazmín bi.nl .nih .gov/ taivar /stud ies/n std37 / ] # Estim ated Sensi tivit y. Sensi tivit y estim ated acros s the obser justus size distr ibuti on of each syndr ome [per ISCA datab ase nstd3 7] and acros s the range of fract ions obser justus in routi ne clini victorino NIPT. Actua l sensi tivit y can also be influ enced by other facto rs such as the size of the event , total seque nce count s, ampli ficat ion bias, or seque nce bias. ## Singl eton gesta tion only. Not Available [facility] ([facility]) [address], [place], [address], 11/09/2024 19:09:00 11/05/19 25 11/09/2024 MATER NIT21 PLUS CORE limitations of the test COMMEN T While the resul ts of these tests are highl y relia ble, disco rdant resul ts, inclu ding inacc urate sex predi ction , may occur due to place ntal, mater nal, or mosai cism or neopl asm; vanis prabha twin; prior mater nal organ trans plant ; or other cause s. These tests are scree art tests and not diagn ostic ; they do not repla ce the accur acy and preci trever of prena kelsie diagn osis with CVS or amnio cente sis. A patie nt with a posit hannah test resul t shoul d be refer red for li ic couns eling and offer ed invas hannah prena kelsie diagn osis for confi rmati on of test resul ts.[5 ] The resul ts of this testi ng, inclu ding the benef its and limit ation s, shoul d be discu ssed with a quali fied healt hcare provi michell. Pregn mary beth manag ement decis ions, inclu ding termi natio n of the pregn mary beth, shoul d not be based on the resul ts of these tests alone . The healt hcaconsuelo provi michell is respo nsibl e for the use of this infor matio n in the manag ement of their patie nt. Sex chrom osoma l aneup loidi es are not repor table for known multi ple gesta tions . A negat hannah resul t does not ensur e an unaff ected pregn mary beth nor does it exclu de the possi bilit y of other chrom osoma l abnor malit ies or defec ts which are not a part of these tests . An uninf ormat hannah resul t may be repor evelina, the cause s of which may inclu de, but are not limit ed to, insuf ficie nt seque ncing cover age, noise or artif acts in the regio n, ampli ficat ion or seque ncing bias, or insuf ficie nt fract ion. These tests are not inten ded to ident reggie pregn ancie s at risk for neura l tube defec ts or ventr al wall defec ts. Testi ng for whole chrom osome abnor malit ies (incl uding sex chrom osome s) and for subch romos omal abnor malit ies could lead to the poten tial disco very of both and mater nal genom ic abnor malit ies that could have major , minor , or no, clini victorino signi fican ce. Evalu ating the signi fican ce of a posit hannah or a non-r eport able resul t may invol ve both invas hannah testi ng and addit ional studi es on the mothe r. Such inves tigat ions may lead to a diagn osis of mater nal chrom osoma l or subch romos omal abnor malit ies, which on occas ion may be assoc iated with benig n or malig nant mater nal neopl asms. These tests may not accur ately ident reggie tripl oidy, stephanie antonio rearr angem ents, or the preci se locat ion of subch romos omal dupli catio ns or delet ions; these may be detec evelina by prena kelsie diagn osis with CVS or amnio cente sis. The abili ty to repor t resul ts may be impac evelina by mater nal BMI, mater nal weigh t, mater nal syste marty lupus eryth emato farzaneh (SLE) and/o r by certa in pharm aceut ical agent s such as low molec ular weigh t hepar in (for examp le: Loven ox(R) , Xapar in(R) , Clexa ne(R) and Fragm in(R) ). Not Available [facility] ([facility]) [address] [facility], [place], [address], 11/09/2024 19:09:00 11/05/19 25 11/09/2024 MATER NIT21 PLUS CORE note COMMANU T See Notes [employer] is a subsi diary of Labor atory [employer] ratio [employer], using the brand [employer]. This test was devel oped and its perfo rmanc e vasyl cteri stics deter mined by [employer]. It has not been clear ed or appro jsutus by the Food and Drug Admin istra tion. This labor atory is certi fied under the [facility] Labor atory Impro vemen t Amend ments (CLIA ) as quali fied to perfo rm high compl exity clini victorino labor atory testi ng and accre dited by the [place] of Ameri can Patho logis ts (CAP) . If there is futur e clini victorino need for addin g Mater niT GENOM E testi ng, this speci men will be avail able until term. [facility] sampl es will not be retai slim beyon d 60 days. [facility] patie nts will have to send a new sampl e for re-se quenc ing ([facility] Test Code: 23861 4). Not Available [facility] ([facility]) [address] [facility], [place], [address], 11/09/2024 19:09:00 11/05/19 25 11/09/2024 MATER NIT21 PLUS CORE references COMMEN T 1. Carlos HAN, et al. Li Med. 2012; 14(3) :296- 305. 2. Oj SOUZA, et al. Prena t Diag. 2013; 33(6) :591- 597. 3. Angus C, et al. Clin Chem. 2015 Jan;6 1(4): 608-6 16. 4. Carlos HAN, et al. Li Med. 2011; 13(11 ):913 -920. 5. ACOG/ SMFM Pract ice Bulle tin No. 226, Jul 2020. Not Available [facility] ([facility]) [address] [facility], [place], [address], 11/09/2024 19:09:00 11/05/1911/09/2024 MATER NIT21 PLUS CORE pdf . Not Available [facility] ([facility]) [address] [facility], [place], [address], 11/09/2024 19:09:00 11/24/19 25 11/26/2024 NUSWA B VAGIN ITIS PLUS (VG+) atopobium vaginae LOW - 0 score Not Available [facility] ([facility]) [address] [facility], [place], [address], 11/26/2024 09:13:20 11/24/19 25 11/26/2024 NUSWA B VAGIN ITIS PLUS (VG+) bvab 2 LOW - 0 score Not Available [facility] ([facility]) [address] [facility], [place], [address], 11/26/2024 09:13:20 11/24/19 25 11/26/2024 NUSWA B VAGIN ITIS PLUS (VG+) megasphaera 1 LOW - 0 score Calcu late total score by jomar power the 3 indiv idual bacte rial vagin osis (BV) marke r score s toget her. Total score is inter prete d as follo ws: Total score 0-1: Indic ates the absen ce of BV. Total score 2: Indet ermin ate for BV. Addit ional clini victorino data shoul d be evalu ated to estab maryjane a diagn osis. Total score 3-6: Indic ates the prese nce of BV. Not Available [facility] ([facility]) [address] [facility], [place], [address], 11/26/2024 09:13:20 11/24/19 25 11/26/2024 NUSWA B VAGIN ITIS PLUS (VG+) renetta albicans, CHAD NEGATI VE negati ve Not Available [facility] ([facility]) [address] [place], [address], 11/26/2024 09:13:20 11/24/19 25 11/26/2024 NUA B VAGIN ITIS PLUS (VG+) renetta glabrata, CHAD NEGATI VE negati ve Not Available [facility] ([facility]) [address] [place], [address], 11/26/2024 09:13:20 11/24/19 25 11/26/2024 NUA B VAGIN ITIS PLUS (VG+) trich vag by CHAD NEGATI VE negati ve Not Available [facility] ([facility]) [address] [place], [address], 11/26/2024 09:13:20 11/24/19 25 11/26/2024 NUA B VAGIN ITIS PLUS (VG+) chlamydia trachomatis, CHAD NEGATI VE negati ve Not Available [facility] ([facility]) [address] [facility], [place], [address], 11/26/2024 09:13:20 11/24/19 25 11/26/2024 NUA B VAGIN ITIS PLUS (VG+) neisseria gonorrhoeae, CHAD NEGATI VE negati ve Not Available [facility] ([facility]) [address] [facility], [place], [address], 11/26/2024 09:13:20 11/24/19 25 11/26/2024 IGP, APTIM A HPV HPV aptima NEGATI VE negati ve This nucle ic acid ampli ficat ion test detec ts fourt een high- risk HPV types (16,1 8,31, 33,35 ,39,4 5,51, 52,56 ,58,5 9,66, 68) witho ut diffe renti ation . Not Available [facility] ([facility]) [address] [place], [address], 11/27/2024 11:20:52 11/24/19 25 11/27/2024 IGP, APTIM A HPV diagnosis: CAROLE T NEGAT HANNAH FOR INTRA EPITH ELIAL LESIO N OR MALIG MJ . CELLU ALEXIA INMAN ES ASSOC IATED WITH INFLA MMATI ON ARE PRESE NT. Not Available [facility] ([facility]) [address] [place], [address], 11/27/2024 11:20:52 11/24/19 25 11/27/2024 IGP, APTIM A HPV specimen adequacy: CAROLE T Satis facto ry for evalu ation . Endoc ervic al and/o r squam ous metap lasti c cells (endo cervi victorino compo nent) are prese nt. Not Available [facility] ([facility]) [address] [place], [address], 11/27/2024 11:20:52 11/24/19 25 11/27/2024 IGP, APTIM A HPV clinician provided ICD10: CAROLE Parisi Z34.9 2 Not Available [facility] ([facility]) [address] [place], [address], 11/27/2024 11:20:52 11/24/19 25 11/27/2024 IGP, APTIM A HPV performed by: Nasim Newell Not Available [facility] ([facility]) [address] [place], [address], 11/27/2024 11:20:52 11/24/19 25 11/27/2024 IGP, APTIM A HPV . . Not Available [facility] ([facility]) [address] [place], [address], 11/27/2024 11:20:52 11/24/19 25 11/27/2024 IGP, APTIM A HPV note: CAROLE T The Pap smear is a scree art test earle smalls to aid in the detec tion of kimberlee ligna nt and malig nant condi tions of the uteri ne cervi x. It is not a diagn ostic proce dure and shoul d not be used as the sole means of detec ting cervi victorino cance r. Both false -posi tive and false -nega tive repor ts do occur . Not Available [facility] ([facility]) [address] [facility], [place], [address], 11/27/2024 11:20:52 11/24/19 25 11/27/2024 IGP, APTIM A HPV test methodology: COMMEN T This liqui d based ThinP rep(R ) pap test was scree slim with the use of an image guide anastasiia aranda. Not Available [facility] ([facility]) [address] [facility], [place], [address], 11/27/2024 11:20:52 11/24/19 25 11/24/2024 urina lysis , dipst ick Leukocytes Negati ve Not Available In-Office Order Internal Use Only DO Not Attach Compendium DO Not Attach Compendium, Do Not Delete/merge, 11/24/2024 17:24:30 11/24/19 25 11/24/2024 urina lysis , dipst ick Nitrite negati ve Not Available In-Office Order Internal Use Only DO Not Attach Compendium DO Not Attach Compendium, Do Not Delete/merge, 11/24/2024 17:24:30 11/24/19 25 11/24/2024 urina lysis , dipst ick Urobilinogen .2 Not Available In-Of fice Order Internal Use Only DO Not Attach Compendium DO Not Attach Compendium, Do Not Delete/merge, 11/24/2024 17:24:30 11/24/19 25 11/24/2024 urina lysis , dipst ick Protein Negati ve Not Available In-Office Order Internal Use Only DO Not Attach Compendium DO Not Attach Compendium, Do Not Delete/merge, 11/24/2024 17:24:30 11/24/19 25 11/24/2024 urina lysis , dipst ick pH 6.5 Not Available In-Office Order Internal Use Only DO Not Attach Compendium DO Not Attach Compendium, Do Not Delete/merge, 11/24/2024 17:24:30 11/24/19 25 11/24/2024 urina lysis , dipst ick Blood Negati ve Not Available In-Office Order Internal Use Only DO Not Attach Compendium DO Not Attach Compendium, Do Not Delete/merge, 11/24/2024 17:24:30 11/24/19 25 11/24/2024 urina lysis , dipst ick Specific [place] 1.030 Not Available In-Off ice Order Internal Use Only DO Not Attach Compendium DO Not Attach Compendium, Do Not Delete/merge, 11/24/2024 17:24:30 11/24/19 25 11/24/2024 urina lysis , dipst ick Ketone Negati ve Not Available In-Office Order Internal Use Only DO Not Attach Compendium DO Not Attach Compendium, Do Not Delete/merge, 11/24/2024 17:24:30 11/24/19 25 11/24/2024 urina lysis , dipst ick Bilirubin Negati ve Not Available In-Office Order Internal Use Only DO Not Attach Compendium DO Not Attach Compendium, Do Not Delete/merge, 11/24/2024 17:24:30 11/24/19 25 11/24/2024 urina lysis , dipst ick Glucose Negati ve Not Available In-Office Order Internal Use Only DO Not Attach Compendium DO Not Attach Compendium, Do Not Delete/merge, 11/24/2024 17:24:30 11/24/19 25 11/24/2024 urina lysis , dipst ick Appearance Clear Not Available In-Offi ce Order Internal Use Only DO Not Attach Compendium DO Not Attach Compendium, Do Not Delete/merge, 11/24/2024 17:24:30 11/24/19 25 11/24/2024 urina lysis , dipst ick Color Yellow Not Available In-Office Order Internal Use Only DO Not Attach Compendium DO Not Attach Compendium, Do Not Delete/merge, 11/24/2024 17:24:30 01/14/20 25 01/13/2025 urina lysis , dipst ick Leukocytes Negati ve Not Available In-Office Order Internal Use Only DO Not Attach Compendium DO Not Attach Compendium, Do Not Delete/merge, 01/13/2025 17:28:49 01/14/20 25 01/13/2025 urina lysis , dipst ick Nitrite negati ve Not Available In-Office Order Internal Use Only DO Not Attach Compendium DO Not Attach Compendium, Do Not Delete/merge, 01/13/2025 17:28:49 01/14/20 25 01/13/2025 urina lysis , dipst ick Urobilinogen .2 Not Available In-Of fice Order Internal Use Only DO Not Attach Compendium DO Not Attach Compendium, Do Not Delete/merge, 01/13/2025 17:28:49 01/14/20 25 01/13/2025 urina lysis , dipst ick Protein Trace Not Available In-Office Order Internal Use Only DO Not Attach Compendium DO Not Attach Compendium, Do Not Delete/merge, 01/13/2025 17:28:49 01/14/20 25 01/13/2025 urina lysis , dipst ick pH 7.0 Not Available In-Office Order Internal Use Only DO Not Attach Compendium DO Not Attach Compendium, Do Not Delete/merge, 01/13/2025 17:28:49 01/14/20 25 01/13/2025 urina lysis , dipst ick Blood Negati ve Not Available In-Office Order Internal Use Only DO Not Attach Compendium DO Not Attach Compendium, Do Not Delete/merge, 01/13/2025 17:28:49 01/14/20 25 01/13/2025 urina lysis , dipst ick Specific [place] 1.025 Not Available In-Off ice Order Internal Use Only DO Not Attach Compendium DO Not Attach Compendium, Do Not Delete/merge, 01/13/2025 17:28:49 01/14/20 25 01/13/2025 urina lysis , dipst ick Ketone Negati ve Not Available In-Office Order Internal Use Only DO Not Attach Compendium DO Not Attach Compendium, Do Not Delete/merge, [id number] 01/13/2025 17:28:49 01/14/20 25 01/13/2025 urina lysis , dipst ick Bilirubin Negati ve Not Available In-Office Order Internal Use Only DO Not Attach Compendium DO Not Attach Compendium, Do Not Delete/merge, [id number] 01/13/2025 17:28:49 01/14/20 25 01/13/2025 urina lysis , dipst ick Glucose Negati ve Not Available In-Office Order Internal Use Only DO Not Attach Compendium DO Not Attach Compendium, Do Not Delete/merge, [id number] 01/13/2025 17:28:49 01/14/20 25 01/13/2025 urina lysis , dipst ick Appearance Clear Not Available In-Offi ce Order Internal Use Only DO Not Attach Compendium DO Not Attach Compendium, Do Not Delete/merge, [id number] 01/13/2025 17:28:49 01/14/20 25 01/13/2025 urina lysis , dipst ick Color Yellow Not Available In-Office Order Internal Use Only DO Not Attach Compendium DO Not Attach Compendium, Do Not Delete/merge, [id number] 01/13/2025 17:28:49 01/09/2001/08/2025 US, obste tric, 1st trime ster No observ ation record ed. [facility] ([facility]) [address] [place], [address], 01/13/2025 17:44:42 Result Notes None recorded. Problems Name Problem SNOMED Code Status Onset Date Resolution Date Notes Provider Name and Address Organization Details Recorded Time Suprapubi c pain 687133901 Active 2017 Bhavya Panda PA-C Attn: Accounting ,[address] [place], [address] , [place] - [facility] 8 11:20:19 Pain of multiple joints 17220788 Active 2022 Chago Sainz MD Attn: Accounting ,[address] [place], [address] , [place] - [facility] 3 14:38:08 09565401 Active 2024 ZURDO RAYMOND PA-C Attn: Accounting ,[address] [place], [address] , [place] - [facility] 5 17:11:14 Insuffici ent care 96644686508 09 Completed Jud Gaines null, [place] - [facility] 6 15:29:28 Anemia 772373490 Active Driss Andres [place], [place] - [facility] 6 12:36:44 Anemia 164939165 Completed [place] [facility] 6 15:29:27 Vitamin D deficienc y 25920458 Active Driss [place] [facility] 6 12:36:44 Vitamin D deficienc y 97467490 Completed Jud [place] [facility] 6 15:29:28 [facility] 09761933 Active Anabel Evangelista MA null, [place] - [facility] 6 17:41:01 Vaginitis 59211706 Active 2016 Bhavya Panda PA-C Attn: Accounting ,[address] [place], [address] , [place] - [facility] 7 10:42:57 Body mass index 25-29 - overweigh t 333389636 Active 2016 Bhavya Panda PA-C Attn: Accounting ,[address] [place], [address] , [place] - [facility] 7 11:02:23 Candidias is of vagina 41398464 Active 2016 Bhavya Panda PA-C Attn: Accounting ,[address] [place], [address] , [place] - [facility] 7 09:37:00 Problem Notes None recorded. Procedures Surgical History Date Name Laterality Status Provider Name and Address Organization Details Recorded Time 02/10/2018 Date of Last Pap Smear completed La Manrique [place] - [facility] 02/10/2018 12:01:51 Imaging Results Imaging Date Name Status LastModified by Organiz ation Details LastModified Time 01/08/2025 US, obstetric, 1st trimester completed [email or web address] [facility] ([facility]) [address], [place], [address], 01/13/2025 17:44:42 Procedure Notes None recorded. Medical Equipment None Reported. Allergies No known drug allergies Medications Name Sig Start Date Stop Date Status Note LastModified by Organization Details LastModified Time multivita min tablet Take 1 tablet every day by oral route. 09/20 completed Not Available Not Available Not Available fluconazo le 150 mg tablet Take 1 tablet by oral route. 09/20 completed Not Available Not Available Not Available ondansetr on 8 mg disintegr ating tablet Place 1 tablet twice a day by translin gual route as needed for 30 days. 2024 active Not Available Not Available Not Avai lable Vitamin tablet Take 1 tablet every day by oral route as directed . 02/10 completed Not Available Not Available Not Available Depo-Prov era 150 mg/mL intramusc ular suspensio n Inject 1 mL every 3 months by intramus cular route. 04/25 completed 04/25/18 pt states changed decision on bc-depot , never went and picked up Rx, cb-rma Not Available Not Available Not Available Flagyl 500 mg tablet Take 1 tablet twice a day by oral route for 7 days. 09/20 completed Not Available Not Available Not Available ferrous sulfate 325 mg (65 mg iron) tablet Take 1 tablet twice a day by oral route. 02/10 completed Not Available Not Available Not Available nystatin 100,000 unit/gram topical cream APPLY TO THE AFFECTED AREA(S) BY TOPICAL ROUTE 2 TIMES PER DAY 04/25 completed Not Available Not Available Not Available ondansetr on 4 mg disintegr ating tablet Place 1 tablet every 8 hours by translin gual route as needed for 30 days. 2024 active Not Available Not Available Not Avai lable naproxen 500 mg tablet Take 1 tablet twice a day by oral route with meals. 11/03 completed Not Available Not Available Not Available Depo-Prov era 150 mg/mL intramusc ular syringe Inject 150 mg every 3 months by intramus cular route. 12/30 completed Not Available Not Available Not Available Sprintec (28) 0.25 mg-0.035 mg tablet Take 1 tablet every day by oral route. 09/20 completed Not Available Not Available Not Available Clindesse 2 % vaginal cream,ext ended release Insert 1 applicat orful by vaginal route. 09/20 completed Not Available Not Available Not Available cholecalc iferol (vitamin D3) 50 mcg (2,000 unit) capsule TAKE 1 CAPSULE BY MOUTH EVERY DAY 01/06 completed Not Available Not Available Not Available 28 mg iron-800 mcg tablet Take 1 tablet every day by oral route for 100 days. 2024 active Not Available Not Available Not Avai lable calcium 600 mg (as carbonate )-vitamin D3 20 mcg (800 unit) tablet Take 1 tablet twice a day by oral route for 30 days. 11/03 completed Not Available Not Available Not Available Caltrate plus D 600 mg (carbonat e)-20 mcg (800 unit) chewable tablet Take 1 tablet twice a day by oral route. 02/10 completed Not Available Not Available Not Available Vitals Date Recorded Body height Body mass index (BMI) Body weight Body temperature Oxygen saturation Oxygen saturation in Arterial blood by Pulse oximetry Heart rate Systolic blood pressure Diastolic blood pressure Provider Name and Address Organization Details Last Updated DateTime 3 144.78 cm 29.4 kg/m2 96137.5 6 g 98 [degF] 99 % 99 % 62 /min 116 mm[Hg] 76 mm[Hg] Em Ramos [place] - [facility] 3 14:13:35 Date Recorded Body height Body mass index (BMI) Body weight Oxygen saturation Oxygen saturation in Arterial blood by Pulse oximetry Heart rate Systolic blood pressure Diastolic blood pressure Provider Name and Address Organization Details Last Updated DateTime 4 144.78 cm 29.2 kg/m2 13821.9 7 g 97 % 97 % 74 /min 114 mm[Hg] 76 mm[Hg] Ann Quinn MA [facility] 4 15:25:25 Date Recorded Body height Body mass index (BMI) Body weight Oxygen saturation Oxygen saturation in Arterial blood by Pulse oximetry Heart rate Systolic blood pressure Diastolic blood pressure Provider Name and Address Organization Details Last Updated DateTime 5 144.78 cm 28.1 kg/m2 82560.0 1 g 98 % 98 % 73 /min 118 mm[Hg] 68 mm[Hg] Ana Luisa Tamayo MA [facility] 5 16:58:38 Date Recorded Body height Body mass index (BMI) Body weight Oxygen saturation Oxygen saturation in Arterial blood by Pulse oximetry Heart rate Body temperature Systolic blood pressure Diastolic blood pressure Provider Name and Address Organization Details Last Updated DateTime 5 144.78 cm 28.3 kg/m2 28285.1 6 g 98 % 98 % 76 /min 97.9 [degF] 118 mm[Hg] 64 mm[Hg] Ana Luisa Tamayo MA [facility] 5 17:17:09 Date Recorded Body height Body temperature Body mass index (BMI) Body weight Oxygen saturation Oxygen saturation in Arterial blood by Pulse oximetry Heart rate Systolic blood pressure Diastolic blood pressure Provider Name and Address Organization Details Last Updated DateTime 5 144.78 cm 97.2 [degF] 28.8 kg/m2 17107.1 9 g 98 % 98 % 84 /min 116 mm[Hg] 72 mm[Hg] Heather Doshi [facility] 5 17:15:55 Social History Question Answer Notes LastModified by Organizat ion Details LastModified Time Tobacco Smoking Status Never Smoker Norma Gallardo MA null, [facility] 10/24/2015 17:14:19 Do You Have An Advance Directive? No [email or web address] Information not available 10/24/2015 What Is Your Level Of Alcohol Consumption? [email or web address] Information not available 10/24/2015 If You Are , What Was Your Level Of Alcohol Consumption Prior To ? None [email or web address] Information not available 10/24/2015 Is Anesthesia Consult Planned? Yes Information not available 10/24/2015 Plan No Information no t available 10/24/2015 Is Blood Transfusion Acceptable In An Emergency? Yes Information not available 10/24/2015 What Is Your Level Of Caffeine Consumption? Moderate Soda Information not available 12/02/2015 Live With Cats/exposure To Cat Litter No Information not available 10/24/2015 How Much Tobacco Do You Chew? None Information not available 10/24/2015 Are You Currently Employed? Yes Information not available 10/24/2015 What Type Of Diet Are You Following? 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 No Information not available 10/24/2015 Frequent Air Travel No Information not available 10/24/2015 Illicit Drugs Pre- None Information not available 10/24/2015 Live Alone Or With Others? With Others Information not available 10/24/2015 Marital Status Informatio n not available 10/24/2015 What Was The Date Of Your Most Recent Tobacco Screening? 01/13/2025 [email or web address] Information not available 01/13/2025 How Many Children Do You Have? 3 Information not available 02/10/2018 Are There Any Occupational Health Risks Where You Work? None Information not available 10/24/2015 Do You Use Protection During Sex? No Information not available 02/22/2016 What Is Your Relationship Status? Single Information not available 02/10/2018 Seat Belts Used Routinely Yes Information not available 10/24/2015 Are You Sexually Active? Yes Information not available 10/24/2015 Do You Have Smoke And Carbon Monoxide Detectors In Your Home? Yes Information not available 10/24/2015 Are You Passively Exposed To Smoke? No Information not available 10/24/2015 How Much Tobacco Do You Smoke? No Information not available 02/10/2018 Smoking Pre- No Information not available 10/24/2015 General Stress Level Low Information not available 10/24/2015 Do You Use Sunscreen Routinely? Yes Information not available 10/24/2015 Supplements Vitamin [email or web address] Information not available 12/02/2015 Has Tobacco Cessation Counseling Been Provided? No dusty Information not available 12/30/2018 On What Date Was Tobacco Cessation Counseling Provided? 01/07/2024 Dusty Answered No To The Tobacco Cessation Counseling Provided Question On 12/30/2018. [email or web address] Information not available 01/07/2024 How Many Years Have You Smoked Tobacco? 0 Information not available 02/10/2018 Do You Or Have You Ever Used Any Other Forms Of Tobacco Or Nicotine? No [email or web address] Information not available 08/05/2023 Sex: Unknown Functional Status Question Answer Note LastModified by Organization D etails LastModified Time What is your exercise level? Moderate Information not available 10/24/2015 Mental Status None recorded. Family History Relationship Description Onset Age of this Age Resolved Age Notes LastModified by Organization Details LastModified Time Father No current problems or disability [email or web address] Not available 12/19 17:05:00 Mother No current problems or disability [email or web address] Not available 12/19 17:05:00 Medical History Condition Response Other Y High Blood Pressure N Breast Cancer N Thyroid Problems N Kidney or Bladder Problems N GI Problems N Lung Disease N Depression N Blood Clots N Acne Y Eating Disorder N Breast Problem N Anemia N Anesthesia Complications N Headaches/Migraines N Anxiety Disorder N Diabetes N Ovarian Cancer N Muscle, Joint, or Bone Problems N Blood Transfusions N Seizures/Epilepsy N Polyps N Infertility N Acid Reflux (GERD) N Cancer N Urinary Tract Infection Y Abuse/Domestic Violence N Asthma N Substance Abuse N Endometriosis N High Cholesterol N Hepatitis N Liver Disease N Heart Disease N Pre-Eclampsia N Chicken Pox Y Osteoporosis N Gynecological History Statement/Question Response Abnormal Pap N Date of LMP 07/13/2024 On BCP's at Conception? N STIs/STDs N HPV Vaccine N Duration of Flow (days) 4 Age at Menarche 16 Current Control Method Condoms Age at First Child 18 Frequency of Cycle (Q days) Sexually Active? Y Menses Monthly N Date of Last Pap Smear 02/10/2018 Sexual Problems? N LMP Approximate Desired Control Method Condoms Obstetrics History GPAL:G 4 P 3 0 0 3 Type Value Multiple Births 0 Full Term 3 Induced 0 Spontaneous 0 Premature 0 Living 3 Ectopics 0 Total 4 Immunizations Vaccine Type Date Status Note Provider Nam e and Address Organization Details Recorded Time Influenza, split virus, quadrivalent, preservative 6 completed Not Available [facility] 11/07/2019 02:46:38 Tdap 6 completed Not Available [facility] 11/07/2019 02:43:45 Past Encounters Encounter ID Performer Location Encounter Start Date Encounter Closed Date Diagnosis/Indication Diagnosis SNOMED-CT Code Diagnosis ICD10 Code Diagnosis Note [id number] Jud Damon ([employer]) [address] [place] [address] [phone] 0 10/24/2015 16:02:25 10/24/2015 17:46:08 Normal 38779833 Z34.93 Insufficie nt care 9412598452 109 O09.32 Active or passive immunization 502113891 Z23 Administra tion of influenza vaccine 41301428 Z23 [id number] Jud Damon ([employer]) [address] [place] [address] [phone] 0 12/02/2015 15:27:35 12/02/2015 16:12:01 Normal 41518458 Z34.93 [id number] Driss Dmaon ([employer]) [address] [place] [address] [phone] 0 02/22/2016 10:39:49 02/22/2016 13:38:51 care 881642145 Z39.2 state 3131518 1 Z39.2 Z11.51 Uses depot contraception 416608963 Z30.8 [id number] SHEY Mora ([employer]) [address] [place] [address] [phone] 0 05/18/2016 15:48:09 05/23/2016 15:32:34 Uses depot contraception 683925292 Z30.42 [id number] SHEY Anne ([employer]) [address] [place] [address] [phone] 0 08/14/2016 16:01:48 08/15/2016 11:53:16 Uses depot contraception 276426965 Z30.8 [id number] DANIELLA Glaser ([employer]) [address] [place] [address] [id number] 0 12/03/2016 08:26:11 12/03/2016 17:01:13 Vaginitis 34271957 N76.0 Will check swabs Contraception care 50810 5005 Z30.40 Body mass index 25-29 - overweight 223777739 Z68.29 Advised 30 minutes of exercise 5 days/week Advised to not drink her calories Advised 3 balanced meals/day with plenty of fruits and vegetables [id number] Driss Damon ([employer]) [address] [place] [address] [phone] 0 02/10/2018 10:44:34 02/10/2018 12:55:50 Gynecologic examination 68789883 Z01.419 Exposure t o sexually transmissible disorder 999766072 Z20.2 Uses depot contraception 719952693 Z30.8 [id number] DANIELLA Glaser ([employer]) [address] [place] [address] [id number] 0 04/25/2018 09:48:52 04/28/2018 12:35:44 Suprapubic pain 325456259 R10.33 Per patient had a w/u at [facility] - will send for ER note and determinie f/u based on labs Advised office does not do vaginal massages Body mass index 25-29 - overweight 242300759 Z68.27 Advised 30 minutes of exercise 5 days/week Advised to not drink her calories Advised 3 balanced meals/day with plenty of fruits and vegetables [id number] Driss Damon ([employer]) [address] [place] [address] [phone] 0 12/30/2018 16:33:30 12/31/2018 12:37:41 Exposure to sexually transmissible disorder 535453653 Z20.2 Vaginitis 43814347 N76.0 Family latasha nning surveillance 963006914 Z30.09 Candidiasis of vagina 72 098054 B37.3 Uses depot contraception 299674429 Z30.8 [id number] MD Nelson Guerrero (Adult Med) [address] [place] [address] [id number] 0 08/05/2023 13:40:42 08/06/2023 16:05:50 Pain of multiple joints 69088937 M25.50 Body mass index 25-29 - overweight 663952111 Z68.27 [id number] MD Nelson Ballesteros (Adult Med) [address] [place] [address] [phone] 0 01/07/2024 15:17:30 01/07/2024 20:11:02 Screening for malignant neoplasm of cervix 868108556 Z12.4 Venereal d isease screening 610032342 Z11.3 [id number] MD Nelson Alvarez (Adult Med) [address] [place] [address] [phone] 0 11/03/2024 16:49:21 11/25/2024 12:22:28 Overweight 318192002 E66.3 28.1 Advanced m aternal age 554719101 O09.512 Routine an tenatal care 523022227 Z34.92 LMP 07/13/24EDD : 04/20/25New OB labs ordered todayOB U/S orderedRef erral to MFM- Advanced Maternal Age- for genetic counseling and Labor precaution s discussed- handouts given to patientRTC 1-2 weeks for PAP Nausea 915430651 R11.0 Start zofran 4mg q8hr PRN for nausea [id number] MD Nelson Alvarez (Adult Med) [address] [place] [address] [phone] 0 11/24/2024 17:09:15 12/01/2024 12:14:32 Routine care 515052023 Z34.92 LMP 07/13/24EDD : 04/20/25Pt to clam picker and start taking vitaminsPt to schedule and get U/S donePt to get labs done ordered at last OV]Discuss ed labor precaution sRTC 4 week for OB Overweight 168842005 E66 .3 28.3 Nausea and vomiting in 1666060153 O21.9 start ondansetro n 8mg BID PRN [id number] DANIELLA NUNEZ (Adult Med) [address] [place] [address] 01/13/2025 17:05:05 01/14/2025 14:09:02 Routine care 766348105 Z34.93 ENRIQUE: 04/20/25Pt never got OB labs donePt to c/w vitaminsDi scussed labor precaution sReferral to OB for delivery- Pt wants to deliver [facility] Depression screening 171 066995 Z13.31 PHQ9- {{Negative * Positive Mild Mode rate Sever e}} (2 out of 27) Mental hea lth screening 387392182 Z13.39 GAD7- {{Negative * Positive Mild Mode rate Sever e}} (0 out of 21) Overweight 154756395 E66 .3 28.8 Health Concerns Section Related Observation LastModified by Organization Detai ls LastModified Time None Recorded Concern Status LastModified by Organization Details LastModified Time None Recorded Advance Directives Directive N: Payers Encounter Date Sequence Insurance Name Policy Number Policy Mae Covered Member ID Mae Member ID Guarantor Name 08/05/2023 1 *SELF PAY* Ad grecia Huntley 01/07/2024 1 *SELF PAY* Ad grecia Huntley 11/03/2024 SLIDING FEE SCHEDULE - DISCOUNT Angelique Huntley 01/13/2025 1 [place] [facility] Angeliquegrecia Fajardoarro [id number] Angelique Huntley Notes Date Note Type Note Provider Name and Address Organization Details Recorded Time 08/05/2023 text/html Pain in back, hands and shoulders x 1 mth Chago Sainz MD Attn: Accounting,[address] [place], [address], [facility] 08/05/2023 14:44:36 01/07/2024 text/html here for PAP, never had abnormal PAP, periods regular, no vaginal discharge, non smoker, no female cancers in family, one partner, has occasional mild back pain related to work, has seen doctor for it Lexie Claire MD Attn: Accounting,[address] [place], [address], [facility] 01/07/2024 17:30:32 11/03/2024 text/html 34 y/o F here for test. Pt states LMP was around 07/13/24. Pt states she did a test at home and it was positive. Pt has been having nausea that has not let her eat all day at times. Denies vomiting, abdominal pain, bleeding, cramping, AGUIAR, SOB, CP. Shahram Castellon MD Attn: Accounting,[address] [place], [address], [facility] 11/24/2024 16:29:40 11/24/2024 text/html See OB worksheet Shahram bryant MD Attn: Accounting,[address] [facility], [place], [address], [facility] 11/25/2024 18:22:45 OBGyn Episode Ob Episode Information Episode Created Date Number of Fetuses Patient Bloodtype Patient rh Status Prepregnancy Weight lbs Domestic Partner Domestic Partner Phone Father Name Safety Companion Status 11/03/19 25 1 OPEN Fetus Data First Name Last Name Admitted to NICU Weight (g) Sex Living Outcome Pediatric Complications Fetus ID Race Codes Race Delivery Type [id number] Enrique Calculation Initial Enrique Date Initial Exam Date Initial Exam Provider Initial Ultrasound Date Last Menstrual Period Date Ultra Sound Weeks Gestation 03/16/2025 11/03/2024 01/08/2025 07/13/2024 30 Eighteen To Twenty Week Enrique Update Ultra Sound Date Fundal Height At Umbil Quickening Date Ultra Sound Latest Weeks Gestation Final Enrique Confirmed By Final Enrique Confirmed Date Final Enrique Date Ultra Sound Latest Days Gestation 0 [email or web address] 01/13/2025 03/16/20 25 0 Pre- Flowsheet Flowsheet Date 11/03/2024 Ramirez Score Blood Edema Fundus Height Fundus Units Glucose Ketones Leukocytes Nitrite Labor Signs Protein Cervic Dilation Cervic Effacement Cervic Station neg none 15.5 wks none negative neg Type Weight in lbs Pre/Post Dialysis Refused With clothes 130.281088901366 BP Diastolic BP Location Tested BP Systolic BP Type 68 R arm 118 sitting Fetus Heart Rate Present A 154 Present Fetus Movement Comments LMP 07/13/24EDD: 04/20/25New OB labs ordered todayOB U/S orderedReferral to [facility]- for genetic counselingPregnancy and Labor precautions discussed- handouts given to patientRTC 1-2 weeks for PAPStart Zofran q8h PRN Flowsheet Date 11/24/2024 Ramirez Score Blood Edema Fundus Height Fundus Units Glucose Ketones Leukocytes Nitrite Labor Signs Protein Cervic Dilation Cervic Effacement Cervic Station neg none 19 cm none negative neg Type Weight in lbs Pre/Post Dialysis Refused With clothes 130.719748309493 BP Diastolic BP Location Tested BP Systolic BP Type 64 R arm 118 sitting Fetus Heart Rate Present A 156 Fetus Movement A Yes Comments 34-year-old female here for follow-up OB visit. Patient is complaining of increased nausea and vomiting. Patient denies taking vitamins. Patient does confirm FM. Denies abdominal cramping, vaginal bleeding, CP.Plan:LMP 07/13/24EDD: 04/20/25Pt to clam picker and start taking vitaminsPt to schedule and get U/S donePt to get labs done ordered at last OVDiscussed labor precautionsRTC 4 week for OB Flowsheet Date 01/13/2025 Ramirez Score Blood Edema Fundus Height Fundus Units Glucose Ketones Leukocytes Nitrite Labor Signs Protein Cervic Dilation Cervic Effacement Cervic Station neg none none negative trace Type Weight in lbs Pre/Post Dialysis Refused With clothes 133.914742027776 BP Diastolic BP Location Tested BP Systolic BP Type 72 R arm 116 sitting Fetus Heart Rate Present Fetus Movement Comments 34-year-old female here for follow-up OB visit. Per U/S done on 01/08/25, pt is at 31.1 weeks gestation today. Patient is complaining of increased nausea and vomiting. Patient denies taking vitamins. Patient does confirm FM. Denies abdominal cramping, vaginal bleeding, CP. Pt never got OB labs done.ENRIQUE: 04/20/25Pt to clam picker and start taking vitaminsDiscussed labor precautionsReferral to OB Menstrual History Last Menstrual Date Menses Monthly On Bcp Conception Prior Menses Frequency Hcg Plus Date Menarche Onset Age 0907/13/2024 true false 5 17 Genetic Screening And Infection History Question Response Note Patient's Age Will Be 35 Years Or Older At Estim ated Date of Delivery true Thalassemia (Icelandic, Welsh, Mediterranean, Or Background): MCV < 80 false Neural Tube Defect (Meningomyelocele, Spina Bifi da, Or Anencephaly) false Congenital Heart Defect false Down Syndrome false Tal-Sachs (eg, Muslim, Cajun, Chilean-Kyrgyz) f alse Dick Disease false Sickle Cell Disease Or Trait () false Hemophilia Or Other Blood Disorders false Muscular Dystrophy false Cystic Fibrosis false Anup's Chorea false Mental Retardation/Autism false If Yes, Was Person Tested For Fragile X? false Other Inherited Genetic Or Chromosomal Disorder false Maternal Metabolic Disorder (eg, Type 1 Diabetes , PKU) false Patient Or Baby's Father Had A Child With Defects Not Listed Above false Recurrent Loss, Or A Stillbirth false Medications (including Suppl ements, Vitamins, Herbs, OTC Drugs), Illicit/Recreational Drugs, Alcohol false If Yes, Agent(s) And Strength/Dosage false Any Other Genetic History false Live With Someone With TB Or Exposed To TB false Patient Or Partner Has History Of Genital Herpes false Rash Or Viral Illness Since Last Menstrual Perio d false History Of STD, Gonorrhea, Chlamydia, HPV, Syphi lis false Other Infection History false History of HIV false History of Hepatitis false Prior GBS-infected child false Plans and Education First Trimester Discussed Date Discussion Item Discussion Note Discuss ed By 11/03/2024 Anticipated course of care [email or web address] 11/03/2024 Alcohol 11/03/2024 Intimate partner violence op [email or web address] 11/03/2024 Environmental/work hazards o [email or web address] 11/03/2024 Screening for aneuploidy ope rez46 11/03/2024 Nutrition counseling ; special diet; dietary precautions (mercury, listeriosis) [email or web address] 11/03/2024 Childbirth classes/hospital facilities [email or web address] 11/03/2024 HIV and other routine tests [id number] 11/03/2024 Risk factors identif ied by history 11/03/2024 Weight gain counseling opere z46 11/03/2024 Exercise 11/03/2024 Teratogens 11/03/2024 Use of any medicatio ns (including supplements, vitamins, herbs, or OTC drugs) [email or web address] 11/03/2024 [email or web address] 11/03/2024 Sexual activity [email or web address] 11/03/2024 Tobacco/smoking cess ation counseling (ask, advise, assess, assist, and arrange) [email or web address] 11/03/2024 Illicit/recreational drugs o [email or web address] 11/03/2024 Dental care [email or web address] 11/03/2024 Travel 11/03/2024 Seat belt use [id number] 11/03/2024 Indications for ultrasonography [email or web address] 11/03/2024 Avoidance of saunas or hot tubs [email or web address] 11/03/2024 Toxoplasmosis precautions (cats/raw meat) [email or web address] Second Trimester Discussed Date Discussion Item Discussion Note Discuss ed By 01/13/2025 Selecting a care provider [email or web address] 01/13/[address] anning/tubal sterilization [id number] 01/13/2025 Depression screening (when indicated) [email or web address] 01/13/2025 Abnormal lab values [email or web address] 01/13/2025 Signs and symptoms of labor [id number] 01/13/2025 Intimate partner violence op [email or web address] 01/13/2025 Tobacco/smoking cess ation counseling (ask, advise, assess, assist, and arrange) [email or web address] Third Trimester Discussed Date Discussion Item Discussion Note Discuss ed By Delivery Information Delivery Date Delivery Type Labor Anesthesia Weeks Gestation Incision Type Labor Labor Length Hrs Delivered By Post Complications Tubal Sterilization Discharge Date Comments Discharge Information Feeding Method Contraceptive Method Maternal HG B and HCT Levels Ob Episode Information Episode Created Date Number of Fetuses Patient Bloodtype Patient rh Status Prepregnancy Weight lbs Domestic Partner Domestic Partner Phone Father Name Safety Companion Status 10/24/19 16 1 A Positive 100 Wilfido Khai Johnson CLOSED Fetus Data First Name Last Name Admitted to NICU Weight (g) Sex Living Outcome Pediatric Complications Fetus ID Race Codes Race Delivery Type Abdifatah De La Rosa ro false 3090.09 55 M Full Term [id number] White Vaginal Only Problems Problem Notes Problem Name Start Date End Date Resolution Snomed Code Not e Insufficient care 103 [id number] Anemia [id number] Vitamin D deficiency [id number] Enrique Calculation Initial Enrique Date Initial Exam Date Initial Exam Provider Initial Ultrasound Date Last Menstrual Period Date Ultra Sound Weeks Gestation 12/30/2015 10/24/2015 dusty 10/31/2015 01/17/2015 31 Eighteen To Twenty Week Enrique Update Ultra Sound Date Fundal Height At Umbil Quickening Date Ultra Sound Latest Weeks Gestation Final Enrique Confirmed By Final Enrique Confirmed Date Final Enrique Date Ultra Sound Latest Days Gestation 0 12/30/19 16 0 Pre- Flowsheet Flowsheet Date 10/24/2015 Ramirez Score Blood Edema Fundus Height Fundus Units Glucose Ketones Leukocytes Nitrite Labor Signs Protein Cervic Dilation Cervic Effacement Cervic Station none 27 cm none Type Weight in lbs Pre/Post Dialysis Refused 117.570223184300 BP Diastolic BP Location Tested BP Systolic BP Type 54 90 sitting Fetus Heart Rate Present A 145 Present Fetus Movement A Yes Comments new ob late with insufficien t care Flowsheet Date 12/02/2015 Ramirez Score Blood Edema Fundus Height Fundus Units Glucose Ketones Leukocytes Nitrite Labor Signs Protein Cervic Dilation Cervic Effacement Cervic Station Type Weight in lbs Pre/Post Dialysis Refused BP Diastolic BP Location Tested BP Systolic BP Type Fetus Heart Rate Present Fetus Movement Comments Menstrual History Last Menstrual Date Menses Monthly On Bcp Conception Prior Menses Frequency Hcg Plus Date Menarche Onset Age 0301/17/2015 false false 17 Genetic Screening And Infection History Question Response Note Patient's Age Will Be 35 Yea rs Or Older At Estimated Date of Delivery false Thalassemia (Icelandic, Welsh, Mediterranean, Or Background): MCV < 80 false Neural Tube Defect (Meningom yelocele, Spina Bifida, Or Anencephaly) false Congenital Heart Defect false Down Syndrome false Tal-Sachs (eg, Muslim, Cajun, Chilean-Kyrgyz) f alse Dick Disease false Sickle Cell Disease Or Trait () false Hemophilia Or Other Blood Disorders false Muscular Dystrophy false Cystic Fibrosis false [place]'s Chorea false Mental Retardation/Autism false If Yes, Was Person Tested For Fragile X? false Other Inherited Genetic Or Chromosomal Disorder false Maternal Metabolic Disorder (eg, Type 1 Diabetes , PKU) false Patient Or Baby's Father Had A Child With Defects Not Listed Above false Recurrent Loss, Or A Stillbirth false Medications (including Suppl ements, Vitamins, Herbs, OTC Drugs), Illicit/Recreational Drugs, Alcohol true v itamins If Yes, Agent(s) And Strength/Dosage false Any Other Genetic History false Live With Someone With TB Or Exposed To TB false Patient Or Partner Has History Of Genital Herpes false Rash Or Viral Illness Since Last Menstrual Perio d false History Of STD, Gonorrhea, Chlamydia, HPV, Syphi lis false Other Infection History false Plans and Education First Trimester Discussed Date Discussion Item Discussion Note Discuss ed By 12/02/2015 Both/[facility] Second Trimester Discussed Date Discussion Item Discussion Note Discuss ed By 12/02/[address] care provider Dr Otis Mccormick [email or web address] 12/02/[address]ning/tubal sterilization Third Trimester Discussed Date Discussion Item Discussion Note Discuss ed By 12/02/2015 Anesthesia plans Epiduarl [email or web address] 12/02/2015 Circumcision No [email or web address] 12/02/2015 Both [email or web address] 12/02/2015 depression No history re tt27 12/02/2015 Family medical leave or disability forms Delivery Information Delivery Date Delivery Type Labor Anesthesia Weeks Gestation Incision Type Labor Labor Length Hrs Delivered By Post Complications Tubal Sterilization Discharge Date Comments 6 [facility] 37.3 false Carr Discharge Information Feeding Method Contraceptive Method Maternal HG B and HCT Levels Breast Ob Episode Information Episode Created Date Number of Fetuses Patient Bloodtype Patient rh Status Prepregnancy Weight lbs Domestic Partner Domestic Partner Phone Father Name Safety Companion Status 10/24/19 16 1 CLOSED Fetus Data First Name Last Name Admitted to NICU Weight (g) Sex Living Outcome Pediatric Complications Fetus ID Race Codes Race Delivery Type 2721.55 2 F Full Term 91424 Standard Vaginal Delivery Enrique Calculation Initial Enrique Date Initial Exam Date Initial Exam Provider Initial Ultrasound Date Last Menstrual Period Date Ultra Sound Weeks Gestation 0 Eighteen To Twenty Week Enrique Update Ultra Sound Date Fundal Height At Umbil Quickening Date Ultra Sound Latest Weeks Gestation Final Enrique Confirmed By Final Enrique Confirmed Date Final Enrique Date Ultra Sound Latest Days Gestation 0 0 Menstrual History Last Menstrual Date Menses Monthly On Bcp Conception Prior Menses Frequency Hcg Plus Date Menarche Onset Age Delivery Information Delivery Date Delivery Type Labor Anesthesia Weeks Gestation Incision Type Labor Labor Length Hrs Delivered By Post Complications Tubal Sterilization Discharge Date Comments 9 None 40 Anyelit Discharge Information Feeding Method Contraceptive Method Maternal HG B and HCT Levels Ob Episode Information Episode Created Date Number of Fetuses Patient Bloodtype Patient rh Status Prepregnancy Weight lbs Domestic Partner Domestic Partner Phone Father Name Safety Companion Status 10/24/19 16 1 CLOSED Fetus Data First Name Last Name Admitted to NICU Weight (g) Sex Living Outcome Pediatric Complications Fetus ID Race Codes Race Delivery Type 2721.55 2 F Full Term 83720 Standard Vaginal Delivery Enrique Calculation Initial Enrique Date Initial Exam Date Initial Exam Provider Initial Ultrasound Date Last Menstrual Period Date Ultra Sound Weeks Gestation 0 Eighteen To Twenty Week Enrique Update Ultra Sound Date Fundal Height At Umbil Quickening Date Ultra Sound Latest Weeks Gestation Final Enrique Confirmed By Final Enrique Confirmed Date Final Enrique Date Ultra Sound Latest Days Gestation 0 0 Menstrual History Last Menstrual Date Menses Monthly On Bcp Conception Prior Menses Frequency Hcg Plus Date Menarche Onset Age Delivery Information Delivery Date Delivery Type Labor Anesthesia Weeks Gestation Incision Type Labor Labor Length Hrs Delivered By Post Complications Tubal Sterilization Discharge Date Comments 7 [facility]- idural 40 [facility] Discharge Information Feeding Method Contraceptive Method Maternal HG B and HCT Levels
[2025-02-16 14:29] LABS: Hematocrit 30.5 % (37.0-47.0); Hemoglobin 9.6 g/dL (12.0-15.0); Mean Corpuscular HGB Conc 31.5 g/dl (32-36); Mean Corpuscular Hemoglobin 27.5 pg (26-34); Mean Corpuscular Volume 87.4 fl (80-100); Mean Platelet Volume 11.8 fl (7.4-10.4); Platelet Count Result 168 k/mm3 (150-375); Red Blood Count 3.49 M/mm3 (4.2-5.4); Red Cell Distribution Width 13.6 % (11.5-14.5); White Blood Count 7.5 K/mm3 (4.5-10.0)
[2025-02-16 14:56] LABS: Glucose 1 Hour PP 50gm Dose 124 mg/dL
[2025-02-16 15:25] LABS: Syphilis IgG/IgM Antibody Negative (Negative)
[2025-02-16 15:29] LABS: Hepatitis B Surface Antigen Negative (Negative); Rubella IgG Antibody 18.5 IU/ML
[2025-02-16 15:37] LABS: HIV 1/2 Ab P24 Ag Result Negative (Negative)
[2025-02-18 03:28] LABS: Varicella IgG Antibody 8.37 S/CO
== END 2025-02-16 12:13 | disposition home or self-care (01) ==
LOC: ANHLAB 12:13
PROVIDERS: Visit Provider Student in an Organized Health Care Education/Training Program
DX: Z34.90 Encounter for supervision of normal pregnancy, unspecified, unspecified trimester (principal); Z3A.00 Weeks of gestation of pregnancy not specified
CPT/HCPCS: 36415; 82947; 84702; 85027; 86593; 86644; 86703; 86747; 86762; 86787; 86850; 86900; 86901; 87086; 87340; G0432

== ENCOUNTER 2025-02-20 21:41 | Inpatient (IN) | payer OTHER, SELFPAY ==
--- OUTSIDE RECORDS SUMMARY | 2025-02-20 21:56 | XMS_ITS | Clinical Summary ---
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 Gender Identity Female 11/28/2020 9:46 AM SPLITTING MACHINE OPERATOR HELPER Sexual Orientation Not on file Obstetrics History [...] Comments Blood Pressure 126/82 12/15/2020 3:08 PM SPLITTING MACHINE OPERATOR HELPER Pulse - - Temperature - - Respiratory Rate - - Oxygen Saturation - - Inhaled Oxygen Concentration - - Weight 57.3 kg (126 lb 4 oz) 12/15/2020 3:08 PM SPLITTING MACHINE OPERATOR HELPER Height 152.4 cm (5') 12/15/2020 3:08 PM SPLITTING MACHINE OPERATOR HELPER Body Mass Index 24.66 12/15/2020 3:08 PM SPLITTING MACHINE OPERATOR HELPER Plan of Treatment Not on file Care Teams Funeral Home Manager Relationship Specialty Start Date End Date No, Physician PCP - General 11/28/20
--- OUTSIDE RECORDS SUMMARY | 2025-02-20 21:56 | XMS_ITS | Referral Summary ---
Author Organization 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 CLERK OF WORKS Gender Identity Female 11/28/2020 9:46 AM CLERK OF WORKS Sexual Orientation Not on file Last Filed Vital Signs Vital Sign Reading Time Taken Comments Blood Pressure 126/82 12/15/2020 3:08 PM CLERK OF WORKS Pulse - - Temperature - - Respiratory Rate - - Oxygen Saturation - - Inhaled Oxygen Concentration - - Weight 57.3 kg (126 lb 4 oz) 12/15/2020 3:08 PM CLERK OF WORKS Height 152.4 cm (5') 12/15/2020 3:08 PM CLERK OF WORKS Body Mass Index 24.66 12/15/2020 3:08 PM CLERK OF WORKS Plan of Treatment Not on file Care Teams Academic Specialist Relationship Specialty Start Date End Date No, Physician PCP - General 11/28/20
--- OUTSIDE RECORDS SUMMARY | 2025-02-20 21:56 | XMS_ITS | Data Portability ---
Author Organization SNEHA SILVERDhara Address [address] [place] [address] Assessment No assessment recorded. Plan of Treatment Reminders Order Date Submit Date Provider Last Modified By Organization Details Last Modified Time Details Appointments None recorded . Lab urinalys is, dipstick 2024 025 [email or web address] In-Office Order, Internal Use Only DO Not Attach Compendium DO Not Attach Compendium, Do Not Delete/merge, [id number] 17:46:04 urinalys is, dipstick 2024 025 [email or web address] In-Office Order, Internal Use Only DO Not Attach Compendium DO Not Attach Compendium, Do Not Delete/merge, [id number] 17:39:04 pap, IG + HPV, cervical 2024 025 SARA [facility], [address], [place], [address], 5 11:20:52 vaginal pathogen s panel, CHAD+prob e, vaginal fluid 2024 025 SARA [facility], [address], [place], [address], 5 09:13:20 pregnanc y test, urine 2024 025 [email or web address] In-Office Order, Internal Use Only DO Not Attach Compendium DO Not Attach Compendium, Do Not Delete/merge, [id number] 17:33:31 CBC w/ auto diff 2024 025 [facility], [address], [address], [place], [address], 5 19:08:51 culture, urine 2024 025 [facility], [address], [address], [place], [address], 5 19:08:56 hemoglob in (Hb) electrop horesis, blood 2024 025 [facility], [address], [place], [address], 5 19:08:46 HIV 1 + 2, meaningf ul use set 2024 025 [facility], [address], [place], [address], 5 19:08:57 CFTR mutation , blood or tissue 2024 025 [facility], [address], [place], [address], 5 19:08:50 aneuploi dy risk and X & Y analysis , chromoso me specific circulat ing cell free (CCF) DNA, maternal serum 2024 025 [facility], [address], [place], [address], 5 19:09:00 abo group + rh type, blood 2024 025 SARA [facility], [address], [place], [address], 5 19:08:52 drug screen, 5 drugs, urine [address], [address], [place], [address], 5 15:46:16 rubella IgG Ab, quant immunoas say, serum or plasma 2024 025 [facility], [address], [place], [address], 5 19:08:54 RPR (rapid plasma reagin), serum 2024 025 [facility], [address], [place], [address], 5 19:08:53 varicell a zoster virus IgG Ab, QL, IA, serum 2024 025 [facility], [address], [place], [address], 5 19:08:58 vaginal pathogen s panel, CHAD+prob e, vaginal fluid 2024 025 [facility], [address], [place], [address], 5 19:08:48 hepatiti s panel (A+B+C), acute, serum 2024 025 [facility], [address], [place], [address], 5 19:08:47 urinalys is, dipstick 2024 025 In-Office Order, Internal Use Only DO Not Attach Compendium DO Not Attach Compendium, Do Not Delete/merge, [id number] 17:45:27 unlisted lab - nuswab bv, CT/GC/TV 2023 024 [facility], [address], [place], [address], 4 08:25:58 pap, IG + reflex HPV 2023 024 [facility], [address], [place], [address], 4 15:10:37 ESR (erythro cyte sediment ation rate), blood 2022 023 [facility], [address], [place], [address], 3 13:10:20 vitamin D, 25-hydro xy, total, serum 2022 023 [facility], [address], [place], [address], 3 13:10:22 JOSI (antinuc lear antibodi es) screen, serum 2022 023 [facility], [address], [place], [address], 3 13:10:19 CBC 2022 023 [facility], [address], [place], [address], 3 13:10:21 CMP, serum or plasma 2022 023 [facility], [address], [place], [address], 3 13:10:19 Referral obstetri blas referral 2024 025 angela Shukla MD, [address], [address], [place], [address], 5 11:38:50 maternal & medicine referral - Genetic counseli ng 2024 025 [email or web address] [facility], [address] [place], [address], 14:33:44 Procedures None recorded . Surgeries None recorded . Imaging US, obstetri c, 1st trimeste r 2024 025 [facility] ([facility]), [address] [place], [address], 5 15:00:33 Medication Orders ondanset pepe 8 mg disinteg rating tablet 2024 025 [id number], [address], [place], [id number], 5 17:39:10 ondanset pepe 4 mg disinteg rating tablet 2024 025 [facility]247[facility], [address], [place], [id number], 5 17:46:46 28 mg iron-800 mcg tablet 2024 025 [facility] #[id number], [address], [place], [id number], 5 17:33:36 naproxen 500 mg tablet 2022 023 [facility], [address], [place], [id number], 5 17:00:23 Patient TargetsNo targets recorded. Patient Instructions Encounter Date Encounter Id Patient Instructions Last Modified By Organization Details Last Modified Time 08/05/2023 [id number] subha laurent el peso saludable - [learning about healthy weight] [email or web address] Not available 08/05/2023 14:43:15 A healthy lifestyle: care instructions [email or web address] Not available 08/05/2023 14:43:45 11/03/2024 [id number] N useas y v deangelo: instrucciones de cuidado - [nausea and vomiting: care instructions] [email or web address] Not available 11/03/2024 17:46:40 A healthy lifestyle: care instructions [email or web address] Not available 11/03/2024 17:33:31 Edad materna avanzada: Instrucciones de cuidado - [ After Age 35: Care Instructions] [email or web address] Not available 11/03/2024 17:33:31 --Discussed with Dr. Cande che Not available 11/24/2024 16:29:36 11/24/2024 [id number] A healthy lifestyle: care instructions Not available 11/24/2024 17:39:04 --Discussed with Dr. Cande che Not available 11/25/2024 18:22:41 01/13/2025 [id number] A healthy lifestyle: care instructions [email or web address] Not available 01/13/2025 17:45:18 Reason for Referral Maternal & Medicine Re ferral for Advanced maternal age Genetic counseling Referring Physician: [facility], Encounter Date: 11/03/2024 Prescription Clerk Referral for Ro utine care Referring Physician: Zurdo [facility], Encounter Date: 01/13/2025 Results Created Date Observation Date Name Description Value Unit Range Abnormal Flag Note LastModifiedBy Organization Detail LastModifiedTime 08/05/2008/06/2023 JOSI W/REF BUCK JOSI direct Negati ve negati ve Not Available [facility] ([facility]) [address] [place], [address], 08/06/2023 13:10:19 08/05/20 23 08/06/2023 COMP. METAB OLIC PANEL (14) glucose 85 mg/dL 70-99 Not Available [facility] ([facility]) [address] [place], [address], 08/06/2023 13:10:19 08/05/20 23 08/06/2023 COMP. METAB OLIC PANEL (14) BUN 14 mg/dL 6-20 Not Available [facility] ([facility]) [address] [place], [address], 08/06/2023 13:10:19 08/05/20 23 08/06/2023 COMP. METAB OLIC PANEL (14) creatinine 0.59 mg/dL 0.57-1 .00 Not Available [facility] ([facility]) [address] [place], [address], 08/06/2023 13:10:19 08/05/20 23 08/06/2023 COMP. METAB OLIC PANEL (14) eGFR 121 mL/mi n/1.7 3 >59 Not Available [facility] ([facility]) [address] [place], [address], 08/06/2023 13:10:19 08/05/20 23 08/06/2023 COMP. METAB OLIC PANEL (14) BUN/creatini ne ratio 24 9-23 above high normal Not Available [facility] ([facility]) [address] [place], [address], 08/06/2023 13:10:19 08/05/20 23 08/06/2023 COMP. METAB OLIC PANEL (14) sodium 140 mmol/ L 134-14 4 Not Available [facility] ([facility]) [address] [place], [address], 08/06/2023 13:10:19 08/05/20 23 08/06/2023 COMP. METAB OLIC PANEL (14) potassium 4.0 mmol/ L 3.5-5. 2 Not Available [facility] ([facility]) [address] [place], [address], 08/06/2023 13:10:19 08/05/20 23 08/06/2023 COMP. METAB OLIC PANEL (14) chloride 102 mmol/ L 96-106 Not Available [facility] ([facility]) [address] [place], [address], 08/06/2023 13:10:19 08/05/20 23 08/06/2023 COMP. METAB OLIC PANEL (14) carbon dioxide, total 23 mmol/ L 20 Not Available [facility] ([facility]) [address], [place], [address], 08/06/2023 13:10:19 08/05/20 23 08/06/2023 COMP. METAB OLIC PANEL (14) calcium 8.9 mg/dL 8.7-10 .2 Not Available [facility] ([facility]) [address] [facility], [place], [address], 08/06/2023 13:10:19 08/05/20 23 08/06/2023 COMP. METAB OLIC PANEL (14) protein, total 7.0 g/dL 6.0-8. 5 Not Available [facility] ([facility]) [address] [facility], [place], [address], 08/06/2023 13:10:19 08/05/20 23 08/06/2023 COMP. METAB OLIC PANEL (14) albumin 4.2 g/dL 3.9-4. 9 Not Available [facility] ([facility]) [address] [facility] [place], [address], 08/06/2023 13:10:19 08/05/20 23 08/06/2023 COMP. METAB OLIC PANEL (14) globulin, total 2.8 g/dL 1.5-4. 5 Not Available [facility] ([facility]) [address] [facility] [place], [address], 08/06/2023 13:10:19 08/05/20 23 08/06/2023 COMP. METAB OLIC PANEL (14) A/G ratio 1.5 1.2-2. 2 Not Available [facility] ([facility]) [address] [facility], [place], [address], 08/06/2023 13:10:19 08/05/20 23 08/06/2023 COMP. METAB OLIC PANEL (14) bilirubin, total <0.2 mg/dL 0.0-1. 2 Not Available [facility] ([facility]) [address] [facility], [place], [address], 08/06/2023 13:10:19 08/05/2008/06/2023 COMP. METAB OLIC PANEL (14) alkaline phosphatase 64 IU/L 44-121 Not Available [facility]) [address] [facility], [place], [address], 08/06/2023 13:10:19 08/05/2008/06/2023 COMP. METAB OLIC PANEL (14) AST (SGOT) 23 IU/L 0-40 Not Available [facility] ([facility]) [address] [facility], [place], [address], 08/06/2023 13:10:19 08/05/2008/06/2023 COMP. METAB OLIC PANEL (14) ALT (SGPT) 15 IU/L 0-32 Not Available [facility] ([facility]) [address] [facility], [place], [address], 08/06/2023 13:10:19 08/05/2008/06/2023 SEDIM ENTAT ION RATE- WESTE RGREN sedimentatio n rate-huyenerg meghan 12 mm/HR 0-32 Not Available [facility] ([facility]) [address] [facility], [place], [address], 08/06/2023 13:10:20 08/05/2008/06/2023 CBC, PLATE LET, NO DIFFE RENTI AL WBC 8.7 x10e3 /uL 3.4-10 .8 Not Available [facility] ([facility]) [address] [facility], [place], [address], 08/06/2023 13:10:21 08/05/2008/06/2023 CBC, PLATE LET, NO DIFFE RENTI AL RBC 4.23 x10e6 /uL 3.77-5 .28 Not Available [facility] ([facility]) [address] [facility], [place], [address], 08/06/2023 13:10:21 08/05/2008/06/2023 CBC, PLATE LET, NO DIFFE RENTI AL hemoglobin 12.2 g/dL 11.1-1 5.9 Not Available [facility] ([facility]) [address] [facility], [place], [address], 08/06/2023 13:10:21 08/05/2008/06/2023 CBC, PLATE LET, NO DIFFE RENTI AL hematocrit 36.9 % 34.0-4 6.6 Not Available [facility] ([facility]) [address] [facility], [place], [address], 08/06/2023 13:10:21 08/05/2008/06/2023 CBC, PLATE LET, NO DIFFE RENTI AL MCV 87 fL 79-97 Not Available [facility] ([facility]) [address] [facility], [place], [address], 08/06/2023 13:10:21 08/05/2008/06/2023 CBC, PLATE LET, NO DIFFE RENTI AL MCH 28.8 pg 26.6-3 3.0 Not Available [facility] ([facility]) [address] [place], [address], 08/06/2023 13:10:21 08/05/2008/06/2023 CBC, PLATE LET, NO DIFFE RENTI AL MCHC 33.1 g/dL 31.5-3 5.7 Not Available [facility] ([facility]) [address] [facility], [place], [address], 08/06/2023 13:10:21 08/05/20 23 08/06/2023 CBC, PLATE LET, NO DIFFE RENTI AL RDW 12.4 % 11.7-1 5.4 Not Available [facility] ([facility]) [address] [facility], [place], [address], 08/06/2023 13:10:21 08/05/20 23 08/06/2023 CBC, PLATE LET, NO DIFFE RENTI AL platelets 259 x10e3 /uL 150-45 0 Not Available [facility] ([facility]) [address] [facility], [place], [address], 08/06/2023 13:10:21 08/05/2008/06/2023 VITAM IN D, 25-HY [...] um and D. Erlinda bledsoe [place]: The [facility] . 2. Ed mccall MF, Jose steinberg [place], Zaheer off-F errar i AGUIAR, et al. Evalu ation , treat ment, and preve ntion of vitam in D defic iency : an Endoc rine Socie ty clini victorino pract ice guide line. JCEM. 2010; 96(7) :1911 -30. Not Available [facility] ([facility]) [address] [address], [place], [address], 08/06/2023 13:10:22 01/07/20 24 01/08/2024 NUSWA B BV, CT/GC /TV atopobium vaginae Low - 0 score Not Available [facility] ([facility]) [address] [facility], [place], [address], 01/09/2024 08:25:58 01/07/20 24 01/08/2024 NUSWA B BV, CT/GC /TV bvab 2 Low - 0 score Not Available [facility] ([facility]) [address] [facility], [place], [address], 01/09/2024 08:25:58 01/07/20 24 01/08/2024 NUSWA B [...] Drug Admin istra tion. Not Available [facility] ([facility]) [address] [facility], [place], [address], 01/09/2024 08:25:58 01/07/20 24 01/09/2024 NUSWA B BV, CT/GC /TV trich vag by CHAD Negati ve negati ve Not Available [facility] ([facility]) [address] [facility], [place], [address], 01/09/2024 08:25:58 01/07/20 24 01/09/2024 NUSWA B BV, CT/GC /TV chlamydia trachomatis, CHAD Negati ve negati ve Not Available [facility] ([facility]) [address] [facility], [place], [address], 01/09/2024 08:25:58 01/07/20 24 01/09/2024 NUSWA B BV, CT/GC /TV neisseria gonorrhoeae, CHAD Negati ve negati ve Not Available [facility] ([facility]) [address] [facility], [place], [address], 01/09/2024 08:25:58 01/07/20 24 01/07/2024 IGP,A PTIMA HPV,A GE GDLN age gdln acog testing 30-65 Not Available [facility] ([facility]) [address] [facility], [place], [address], 01/09/2024 15:10:37 01/07/20 24 01/09/2024 IGP, APTIM A HPV, RFX 16/18 ,45 diagnosis: Commen t NEGAT HANNAH FOR INTRA EPITH ELIAL LESIO N OR CLAUDIA BARKER . Not Available [facility] ([facility]) [address] [facility], [place], [address], 01/09/2024 15:10:37 01/07/20 24 01/09/2024 IGP, APTIM A HPV, RFX 16/18 ,45 specimen adequacy: Commen t Satis facto ry for evalu ation . Endoc ervic al and/o r squam ous metap lasti c cells (endo cervi victorino compo nent) are prese nt. Not Available [facility] ([facility]) [address] [facility], [place], [address], 01/09/2024 15:10:37 01/07/20 24 01/09/2024 IGP, APTIM A HPV, RFX 16/18 ,45 clinician provided ICD10: Commen t Z11.3 Z12.4 Not Available [facility] ([facility]) [address] [facility], [place], [address], 01/09/2024 15:10:37 01/07/20 24 01/09/2024 IGP, APTIM A HPV, RFX 16/18 ,45 performed by: Carole willis Cytoailin parisi Not Available [facility] ([facility]) [address] [place], [address], 01/09/2024 15:10:37 01/07/20 24 01/09/2024 IGP, APTIM A HPV, RFX 16/18 ,45 . . Not Available [facility] ([facility]) [address] [place], [address], 01/09/2024 15:10:37 01/07/20 24 01/09/2024 IGP, APTIM [...] ts do occur . Not Available [facility] ([facility]) [address] [place], [address], 01/09/2024 15:10:37 01/07/20 24 01/09/2024 IGP, APTIM A HPV, RFX 16/18 ,45 test methodology: Carole parisi This liqui d based ThinP rep(R ) pap test was scree slim with the use of an image guide anastasiia mcrae Not Available [facility] ([facility]) [address] [place], [address], 01/09/2024 15:10:37 01/07/20 24 01/09/2024 IGP, APTIM A HPV, RFX 16/18 ,45 HPV aptima Negati ve negati ve This nucle ic acid ampli ficat ion test detec ts fourt een high- risk HPV types (16,1 8,31, 33,35 ,39,4 5,51, 52,56 ,58,5 9,66, 68) witho ut diffe renti ation . Not Available [facility] ([facility]) [address] [facility], [place], [address], 01/09/2024 15:10:37 01/07/20 24 01/09/2024 IGP, APTIM A HPV, RFX 16/18 ,45 HPV genotype reflex Commen t Crite kimmie not met, HPV Genot ype not perfo rmed. Not Available [facility] ([facility]) [address] [facility], [place], [address], 01/09/2024 15:10:37 11/03/19 25 11/04/2024 SPECI MEN STATU S REPOR T specimen status report TNP Test not perfo rmed. No laven michell top tube submi tted. TEST: 10177 9 CBC With Diffe renti al/Pl atele t 12380 5 Cysti c Fibro sis, 97 [place] [address] 0 [place] [address] 9 ABO Group ing and Rho(D ) Typin g Not Available [facility] ([facility]) [address] [facility], [place], [address], 11/10/2024 19:08:43 11/03/19 25 11/04/[address] PROBL EM request problem TNP Test not perfo rmed. No serum gel recei justus. TEST: 38337 0 Acute Hepat itis 24037 7 Rubel la Antib odies , IgG [address] 5 HIV Ab/p2 4 Ag with Refle x 41014 6 Varic sheri- Zoste r V Ab, IgG 16495 2 RPR Not Available [facility] ([facility]) [address] [facility], [place], [address], 11/10/2024 19:08:44 11/03/19 25 11/04/[address] PROBL EM request problem TNP Test not perfo rmed. No urine speci men recei justus. TEST: 22469 2 10190 2 5 Drug- Scr Not Available [facility] ([facility]) [address] [place], [address], 11/10/2024 19:08:45 11/03/19 25 11/04/2024 HGB FRACT IONAT ION CASCA DE HGB F - % Test not perfo rmed. No laven michell top tube submi tted. Not Available [facility] ([facility]) [address] [facility], [place], [address], 11/10/2024 19:08:46 11/03/19 25 11/04/2024 HGB FRACT IONAT ION CASCA DE HGB A - Test not perfo rmed Not Available [facility] ([facility]) [address] [facility], [place], [address], 11/10/2024 19:08:46 11/03/19 25 11/04/2024 HGB FRACT IONAT ION CASCA DE HGB A2 - Test not perfo rmed Not Available [facility] ([facility]) [address] [place], [address], 11/10/2024 19:08:46 11/03/19 25 11/04/2024 HGB FRACT IONAT ION CASCA DE HGB S - Test not perfo rmed Not Available [facility] ([facility]) [address] [place], [address], 11/10/2024 19:08:46 11/03/19 25 11/04/2024 ACUTE HEPAT ITIS hep A Ab, IgM - Test not perfo rmed. No serum gel recei justus. Not Available [facility] ([facility]) [address] [place], [address], 11/10/2024 19:08:47 11/03/19 25 11/04/2024 ACUTE HEPAT ITIS HBsAg screen - Test not perfo rmed Not Available [facility] ([facility]) [address] [facility], [place], [address], 11/10/2024 19:08:47 11/03/19 25 11/04/2024 ACUTE HEPAT ITIS hep B core Ab, IgM - Test not perfo rmed Not Available [facility] ([facility]) [address] [place], [address], 11/10/2024 19:08:47 11/03/19 25 11/04/2024 ACUTE HEPAT ITIS HCV Ab - Test not perfo rmed Not Available [facility] ([facility]) [address] [place], [address], 11/10/2024 19:08:47 11/03/19 25 11/04/2024 NUSWA B VAGIN ITIS PLUS (VG+) atopobium vaginae LOW - 0 score Not Available [facility] ([facility]) [address] [place], [address], 11/10/2024 19:08:48 11/03/19 25 11/04/2024 NUSWA B VAGIN ITIS PLUS (VG+) bvab 2 LOW - 0 score Not Available [facility] ([facility]) [address] [place], [address], 11/10/2024 19:08:48 11/03/19 25 11/04/2024 NUSWA B [...] prese nce of BV. Not Available [facility] ([facility]) [address] [place], [address], 11/10/2024 19:08:48 11/03/19 25 11/04/2024 NUSWA B VAGIN ITIS PLUS (VG+) renetta albicans, CHAD NEGATI VE negati ve Not Available [facility] ([facility]) [address] [facility], [place], [address], 11/10/2024 19:08:48 11/03/19 25 11/04/2024 NUSWA B VAGIN ITIS PLUS (VG+) renetta glabrata, CHAD NEGATI VE negati ve Not Available [facility] ([facility]) [address] [facility], [place], [address], 11/10/2024 19:08:48 11/03/19 25 11/04/2024 NUA B VAGIN ITIS PLUS (VG+) trich vag by CHAD NEGATI VE negati ve Not Available [facility] ([facility]) [address] [place], [address], 11/10/2024 19:08:48 11/03/19 25 11/04/2024 NUSWA B VAGIN ITIS PLUS (VG+) chlamydia trachomatis, CHAD NEGATI VE negati ve Not Available [facility] ([facility]) [address] [place], [address], 11/10/2024 19:08:48 11/03/19 25 11/04/2024 NUA B VAGIN ITIS PLUS (VG+) neisseria gonorrhoeae, CHAD NEGATI VE negati ve Not Available [facility] ([facility]) [address] [place], [address], 11/10/2024 19:08:48 11/03/19 25 11/04/2024 CYSTI C FIBRO SIS, 97 VARIA NTS ethnicity TNP Test not perfo rmed. No laven michell top tube submi tted. Not Available [facility] ([facility]) [address] [facility], [place], [address], 11/10/2024 19:08:49 11/03/19 25 11/04/2024 CYSTI C FIBRO SIS, 97 VARIA NTS result: - Test not perfo rmed Not Available [facility] ([facility]) [address] [facility], [place], [address], 11/10/2024 19:08:49 11/03/19 25 11/04/2024 CBC WITH DIFFE RENTI AL/PL ATELE T WBC - x10e3 /uL Test not perfo rmed. No laven michell top tube submi tted. Not Available [facility] ([facility]) [address] [facility], [place], [address], 11/10/2024 19:08:51 11/03/19 25 11/04/2024 CBC WITH DIFFE RENTI AL/PL ATELE T RBC - Test not perfo rmed Not Available [facility] ([facility]) [address] [facility], [place], [address], 11/10/2024 19:08:51 11/03/19 25 11/04/2024 CBC WITH DIFFE RENTI AL/PL ATELE T hemoglobin - Test not perfo rmed Not Available [facility] ([facility]) [address] [place], [address], 11/10/2024 19:08:51 11/03/19 25 11/04/2024 CBC WITH DIFFE RENTI AL/PL ATELE T hematocrit - Test not perfo rmed Not Available [facility] ([facility]) [address] [place], [address], 11/10/2024 19:08:51 11/03/19 25 11/04/2024 CBC WITH DIFFE RENTI AL/PL ATELE T platelets - Test not perfo rmed Not Available [facility] ([facility]) [address] [facility], [place], [address], 11/10/2024 19:08:51 11/03/19 25 11/04/2024 CBC WITH DIFFE RENTI AL/PL ATELE T neutrophils - Test not perfo rmed Not Available [facility] ([facility]) [address] [facility], [place], [address], 11/10/2024 19:08:51 11/03/19 25 11/04/2024 CBC WITH DIFFE RENTI AL/PL ATELE T lymphs - Test not perfo rmed Not Available [facility] ([facility]) [address] [facility], [place], [address], 11/10/2024 19:08:51 11/03/19 25 11/04/2024 CBC WITH DIFFE RENTI AL/PL ATELE T monocytes - Test not perfo rmed Not Available [facility] ([facility]) [address] [facility], [place], [address], 11/10/2024 19:08:51 11/03/19 25 11/04/2024 CBC WITH DIFFE RENTI AL/PL ATELE T eos - Test not perfo rmed Not Available [facility] ([facility]) [address] [facility] [facility], [place], [address], 11/10/2024 19:08:51 11/03/19 25 11/04/2024 CBC WITH DIFFE RENTI AL/PL ATELE T lymphs (absolute) - Test not perfo rmed Not Available [facility] ([facility]) [address] [facility], [place], [address], 11/10/2024 19:08:51 11/03/19 25 11/04/2024 CBC WITH DIFFE RENTI AL/PL ATELE T eos (absolute) - Test not perfo rmed Not Available [facility] ([facility]) [address] [place], [address], 11/10/2024 19:08:51 11/03/19 25 11/04/2024 CBC WITH DIFFE RENTI AL/PL ATELE T baso (absolute) - Test not perfo rmed Not Available [facility] ([facility]) [address] [facility], [place], [address], 11/10/2024 19:08:51 11/03/19 25 11/04/2024 ABO GROUP ING AND RHO(D ) TYPIN G ABO grouping - Test not perfo rmed. No laven michell top tube submi tted. Not Available [facility] ([facility]) [address] [place], [address], 11/10/2024 19:08:52 11/03/19 25 11/04/2024 ABO GROUP ING AND RHO(D ) TYPIN G Rh factor - Test not perfo rmed Not Available [facility] ([facility]) [address] [place], [address], 11/10/2024 19:08:52 11/03/19 25 11/04/2024 RPR RPR - Test not perfo rmed. No serum gel recei justus. Not Available [facility] ([facility]) [address] [place], [address], 11/10/2024 19:08:53 11/03/19 25 11/04/2024 RUBEL LA ANTIB ODIES , IGG rubella antibodies, IgG - index Test not perfo rmed. No serum gel recei justus. Non-i mmune <0.90 Equiv ocal 0.90 - 0.99 Immun e >0.99 Not Available [facility] ([facility]) [address] [place], [address], 11/10/2024 19:08:54 11/03/19 25 11/06/2024 URINE CULTU RE,CO MPREH ENSIV E urine culture,comp rehensive FINAL REPORT Not Available [facility] ([facility]) [address] [place], [address], 11/10/2024 19:08:56 11/03/19 25 11/06/2024 URINE CULTU RE,CO MPREH ENSIV E result 1 COMMEN T No growt h in 36 - 48 hours . Not Available [facility] ([facility]) [address] [facility], [place], [address], 11/10/2024 19:08:56 11/03/19 25 11/04/2024 HIV AB/P2 4 AG WITH REFLE X HIV Ab/P24 Ag screen - Test not perfo rmed. No serum gel recei justus. Not Available [facility] ([facility]) [address] [facility], [place], [address], 11/10/2024 19:08:57 11/03/19 25 11/04/2024 VARIC SHERI- ZOSTE R V AB, IGG varicella zoster IgG - Test not perfo rmed. No serum gel recei justus. Ple ase note refer ence inter yony inman e A React hannah resul t is consi dered evide nce of immun ity to VZV. React hannah indic ates that VZV IgG was detec veelina consi stent with previ ous infec tion and/o r vacci natio n. A Non React hannah resul t indic ates that VZV IgG was not detec evelina sugge sting that immun ity has not been acqui red. Not Available [facility] ([facility]) [address] [facility], [place], [address], 11/10/2024 19:08:58 11/03/19 25 11/03/2024 urina lysis , dipst ick Leukocytes Negati ve Not Available In-Office Order Internal Use Only DO Not Attach Compendium DO Not Attach Compendium, Do Not Delete/merge, [id number] 11/03/2024 17:32:01 11/03/19 25 11/03/2024 urina lysis [...] 17:32:01 11/03/1911/03/2024 urina lysis , dipst ick pH 6.5 Not Available In-Office Order Internal Use Only DO Not Attach Compendium DO Not Attach Compendium, Do Not Delete/merge, 11/03/2024 17:32:01 11/03/1911/03/2024 urina lysis , dipst ick Blood Negati ve Not Available In-Office Order Internal Use Only DO Not Attach Compendium DO Not Attach Compendium, Do Not Delete/merge, 11/03/2024 17:32:01 11/03/19 25 11/03/2024 urina lysis , dipst ick Specific [place] 1.030 Not Available In-Off ice Order Internal [...] 25 11/03/2024 urina lysis , dipst ick Glucose Negati [...] Not Delete/merge, 11/03/2024 17:32:01 11/03/19 25 11/03/2024 pregn mary beth test, urine HCG positi ve Not Available In-Office Order Internal Use Only DO Not Attach Compendium DO Not Attach Compendium, Do Not Delete/merge, 11/03/2024 17:12:57 11/05/19 25 11/09/2024 MATER NIT21 PLUS CORE gestation SINGLE TON Not Available [facility] ([facility]) [address] [place], [address], 11/09/2024 19:09:00 11/05/19 25 11/09/2024 MATER NIT21 PLUS CORE fraction 29% Not Available [facility] ([facility]) [address] [place], [address], 11/09/2024 19:09:00 11/05/19 25 11/09/2024 MATER NIT21 PLUS CORE gestational age > or = 9W: YES Not Available [facility] ([facility]) [address] [place], [address], 11/09/2024 19:09:00 11/05/19 25 11/09/2024 MATER NIT21 PLUS CORE test result NEGATI VE Not Available [facility] ([facility]) [address] [place], [address], 11/09/2024 19:09:00 11/05/19 25 11/09/2024 MATER NIT21 PLUS CORE laboratory monitor comments CAROLE Farmer speci men showe d an expec evelina repre senta tion of chrom osome 21, 18 and 13 mater ial. Clini victorino corre latio n is sugguille ricod. Not Available [facility] ([facility]) [address] [facility], [place], [address], 11/09/2024 19:09:00 11/05/19 25 11/09/2024 MATER NIT21 PLUS CORE approved by CAROLE edmondson MD, PhD, [facility], [place] Labor atori es Not Available [facility] ([facility]) [address] [facility], [place], [address], 11/09/2024 19:09:00 11/05/19 25 11/09/2024 MATER NIT21 PLUS CORE trisomy 21 (down syndrome) NEGATI VE Not Available [facility] ([facility]) [address] [facility], [place], [address], 11/09/2024 19:09:00 11/05/19 25 11/09/2024 MATER NIT21 PLUS CORE trisomy 18 (smith syndrome) NEGATI VE Not Available [facility] ([facility]) [address] [place], [address], 11/09/2024 19:09:00 11/05/19 25 11/09/2024 MATER NIT21 PLUS CORE trisomy 13 (patau syndrome) NEGATI VE Not Available [facility] ([facility]) [address] [place], [address], 11/09/2024 19:09:00 11/05/19 25 11/09/2024 MATER NIT21 PLUS CORE sex CAROLE Parisi Consi stent with Male Not Available [facility] ([facility]) [address] [place], [address], 11/09/2024 19:09:00 11/05/19 25 11/09/2024 MATER NIT21 PLUS CORE negative predictive value NOTE The Negat hannah Predi ctive Value (NPV) for triso my 21, 18, and 13 is great er than 99%. The NPV for SCA and ESS canno t be calcu lated as SCA and ESS are only repor evelina when an abnor malit y is detec evelina. Not Available [facility] ([facility]) [address] [facility], [place], [address], 11/09/2024 19:09:00 11/05/1911/09/2024 MATER NIT21 PLUS CORE positive predictive value N/A Not Available [facility] ([facility]) [address] [facility], [place], [address], 11/09/2024 19:09:00 11/05/19 25 11/09/2024 MATER NIT21 [...] yet been valid ated. Not Available [facility] ([facility]) [address] [facility], [place], [address], 11/09/2024 19:09:00 11/05/19 25 11/09/2024 MATER NIT21 PLUS CORE test method COMMEN T See Notes Circu latin g cell- free DNA was purif ied from the plasm a compo nent of mater nal blood . The extra cted DNA was then conve rted into a [employer] DNA ken ry for aneup loidy galina [...] s 16 and 22. Not Available [facility] ([facility]) [address] [facility], [place], [address], 11/09/2024 19:09:00 11/05/19 25 11/09/2024 MATER NIT21 PLUS CORE performance COMMEN T The perfo rmanc e vasyl cteri stics of the Mater niT(R ) 21 PLUS labor atory -deve loped test (LDT) have been deter mined in a clini victorino valid ation study with pregn ant women at incre ased risk for chrom osoma l aneup loidy .[1-4 ] Not Available [facility] ([facility]) [address] [facility], [place], [address], 11/09/2024 19:09:00 11/05/19 25 11/09/2024 MATER NIT21 PLUS CORE performance characterist ics NOTE ----- ----- ----- ----- ----- ----- ----- ----- ----- ----- ----- ---- ! Sex ! Accur acy: 99.4% ! !---- ----- ----- ----- ----- ----- ----- ----- ----- ----- ----- ---! ! Regio n (asso cherie d syndr ome) ! Est. Sens# ! Est. Spec ! !---- ----- ----- ----- ----- ----- ----- ----- ----- ----- ----- ---! ! Maria D my 21 (Down Syndr ome) ! 99.1% ! 99.9% ! !---- ----- ----- ----- ----- ----- ----- ----- ----- ----- ----- ---! ! Maria D my 18 (Edwa rds Syndr ome) ! [...] ----- ---! * As saranya hoyt in MonthlysA datab ase nstd3 7 [http [email or web address] [email or web address] .[email or web address] .gov/ michelle /stud ies/n std37 / ] # Estim [...] eton gesta tion only. Not Available [facility] ([facility]) [address] [facility], [place], [address], 11/09/2024 19:09:00 11/05/1911/09/2024 MATER NIT21 PLUS CORE limitations of the [...] of these tests alone . The healt hcare provi michell is respo nsibl e for [...] and Fragm in(R) ). Not Available [facility] ([facility]) [address] [facility], [place], [address], 11/09/2024 19:09:00 11/05/19 25 11/09/2024 MATER NIT21 PLUS CORE note CAROLE T See Notes [employer] is a subsi diary of Labor atory [employer] ratio n [employer], using the brand [employer]. This test was devel oped and its perfo rmanc e vasyl cteri stics deter mined by [employer]. It has not been clear ed [...] men will be avail able until term. [facility] sampl es will not be retai slim beyon d 60 days. [facility] patie nts will have to send a new sampl e for re-se quenc ing ([facility] Test Code: 72469 4). Not Available [facility] ([facility]) [address] [facility], [place], [address], 11/09/2024 19:09:00 11/05/19 25 11/09/2024 MATER NIT21 PLUS CORE references CAROLE T 1. Carlos HAN, et al. Li Med. 2012; 14(3) :296- 305. 2. Oj SOUZA, et al. Prena t Diag. 2013; 33(6) :591- 597. 3. Angus C, et al. Clin Chem. 2015 Jan;6 1(4): 608-6 16. 4. Carlos HAN et al. Li Med. 2011; 13(11 ):913 -920. 5. ACOG/ SMFM Pract ice Bulle tin No. 226, Jul 2020. Not Available [facility] ([facility]) [address] [facility], [place], [address], 11/09/2024 19:09:00 11/05/1911/09/2024 MATER NIT21 PLUS CORE pdf . Not Available [facility] ([facility]) [address] [facility], [place], [address], 11/09/2024 19:09:00 11/24/19 25 11/26/2024 NUSWA B VAGIN ITIS PLUS (VG+) atopobium vaginae LOW - 0 score Not Available [facility] ([facility]) [address] [facility], [place], [address], 11/26/2024 09:13:20 11/24/19 25 11/26/2024 NUSWA B VAGIN ITIS PLUS (VG+) bvab 2 LOW - 0 score Not Available [facility] ([facility]) [address] [facility], [place], [address], 11/26/2024 09:13:20 11/24/19 25 11/26/2024 NUSWA B [...] prese nce of BV. Not Available [facility] ([facility]) [address] [facility], [place], [address], 11/26/2024 09:13:20 11/24/19 25 11/26/2024 NUSWA B VAGIN ITIS PLUS (VG+) renetta albicans, CHAD NEGATI VE negati ve Not Available [facility] ([facility]) [address] [facility], [place], [address], 11/26/2024 09:13:20 11/24/19 25 11/26/2024 NUA B VAGIN ITIS PLUS (VG+) renetta glabrata, CHAD NEGATI VE negati ve Not Available [facility] ([facility]) [address] [place], [address], 11/26/2024 09:13:20 11/24/19 25 11/26/2024 NUA B VAGIN ITIS PLUS (VG+) trich vag by CHAD NEGATI VE negati ve Not Available [facility] ([facility]) [address] [facility], [place], [address], 11/26/2024 09:13:20 11/24/19 25 11/26/2024 NUA B VAGIN ITIS PLUS (VG+) chlamydia trachomatis, CHAD NEGATI VE negati ve Not Available [facility] ([facility]) [address] [facility], [place], [address], 11/26/2024 09:13:20 11/24/19 25 11/26/2024 NUA B VAGIN ITIS PLUS (VG+) neisseria gonorrhoeae, CHAD NEGATI VE negati ve Not Available [facility] ([facility]) [address] [place], [address], 11/26/2024 09:13:20 11/24/19 25 11/26/2024 IGP, APTIM A HPV HPV aptima NEGATI VE negati ve This nucle ic acid ampli ficat ion test detec ts fourt een high- risk HPV types (16,1 8,31, 33,35 ,39,4 5,51, 52,56 ,58,5 9,66, 68) witho ut diffe renti ation . Not Available [facility] ([facility]) [address] [place], [address], 11/27/2024 11:20:52 11/24/19 25 11/27/2024 IGP, APTIM A HPV diagnosis: CAROLE T NEGAT HANNAH FOR INTRA EPITH ELIAL LESIO N OR CLAUDIA BRAKER . CELLU ALEXIA INMAN ES ASSOC IATED WITH INFLA MMATI ON ARE PRESE NT. Not Available [facility] ([facility]) [address] [place], [address], 11/27/2024 11:20:52 11/24/19 25 11/27/2024 IGP, APTIM A HPV specimen adequacy: CAROLE T Satis facto ry for evalu ation . Endoc ervic al and/o r squam ous metap lasti c cells (endo cervi victorino compo nent) are prese nt. Not Available [facility] ([facility]) [address] [place], [address], 11/27/2024 11:20:52 11/24/19 25 11/27/2024 IGP, APTIM A HPV clinician provided ICD10: CAROLE Parisi Z34.9 2 Not Available [facility] ([facility]) [address] [place], [address], 11/27/2024 11:20:52 11/24/19 25 11/27/2024 IGP, APTIM A HPV performed by: Nasim Newell Not Available [facility] ([facility]) [address] [place], [address], 11/27/2024 11:20:52 11/24/19 25 11/27/2024 IGP, APTIM A HPV . . Not Available [facility] ([facility]) [address] [place], [address], 11/27/2024 11:20:52 11/24/19 25 11/27/2024 IGP, APTIM A HPV note: CAROLE Parisi The Pap smear is a scree art [...] ts do occur . Not Available [facility] ([facility]) [address] [facility], [place], [address], 11/27/2024 11:20:52 11/24/19 25 11/27/2024 IGP, APTIM A HPV test methodology: COMMEN T This liqui d based ThinP rep(R ) pap test was scree slim with the use of an image guide d systnina m. Not Available [facility] ([facility]) [address] [facility], [place], [address], 11/27/2024 11:20:52 11/24/19 25 11/24/2024 urina lysis [...] 11/24/2024 urina lysis , dipst ick Specific [place] 1.030 Not Available In-Off ice Order Internal [...] 01/13/2025 urina lysis , dipst ick Specific [place] 1.025 Not Available In-Off ice Order Internal Use Only DO Not Attach Compendium DO Not Attach Compendium, Do Not Delete/merge, 01/13/2025 17:28:49 01/14/20 25 01/13/2025 urina lysis , dipst ick Ketone Negati ve Not Available In-Office Order Internal Use Only DO Not Attach Compendium DO Not Attach Compendium, Do Not Delete/merge, [id number] 01/13/2025 17:28:49 01/14/20 25 01/13/2025 urina lysis , dipst ick Bilirubin Negati ve Not Available In-Office Order Internal Use Only DO Not Attach Compendium DO Not Attach Compendium, Do Not Delete/merge, [id number] 01/13/2025 17:28:49 01/14/20 25 01/13/2025 urina lysis , dipst ick Glucose Negati ve Not Available In-Office Order Internal Use Only DO Not Attach Compendium DO Not Attach Compendium, Do Not Delete/merge, [id number] 01/13/2025 17:28:49 01/14/20 25 01/13/2025 urina lysis , dipst ick Appearance Clear Not Available In-Offi ce Order Internal Use Only DO Not Attach Compendium DO Not Attach Compendium, Do Not Delete/merge, [id number] 01/13/2025 17:28:49 01/14/20 25 01/13/2025 urina lysis , dipst ick Color Yellow Not Available In-Office Order Internal Use Only DO Not Attach Compendium DO Not Attach Compendium, Do Not Delete/merge, [id number] 01/13/2025 17:28:49 01/09/2001/08/2025 US, obste tric, 1st trime ster No observ ation record ed. [email or web address] [facility] ([facility]) [address] [place], [address], 01/13/2025 17:44:42 Result Notes None recorded. Problems Name Problem SNOMED Code Status Onset Date Resolution Date Notes Provider Name and Address Organization Details Recorded Time Suprapubi c pain 158452357 Active 2017 Bhavya Panda PA-C Attn: Accounting ,[address] [place], [address] , [place] - [facility] 8 11:20:19 Pain of multiple joints 83211398 Active 2022 Chago Sainz MD Attn: Accounting ,[address] [facility], [place], [address] , [place] - [facility] 3 14:38:08 68853128 Active 2024 ZURDO RAYMOND PA-C Attn: Accounting ,[address] [facility], [place], [address] , [place] - [facility] 5 17:11:14 Insuffici ent care 44014646700 09 Completed Jud Gaines null, [place] - [facility] 6 15:29:28 Anemia 069958110 Active Driss Andres [place] [facility] 6 12:36:44 Anemia 107187127 Completed Jud [place] [facility] 6 15:29:27 Vitamin D deficienc y 18270212 Active Driss Andres [place] [facility] 6 12:36:44 Vitamin D deficienc y 14589287 Completed Jud G[place], [place] [facility] 6 15:29:28 [facility] 53598476 Active Anabel Evangelista [place] null, [place] - [facility] 6 17:41:01 Vaginitis 46333715 Active 2016 Bhavya Panda PA-C Attn: Accounting ,[address] [place], [address] , [place] - [facility] 7 10:42:57 Body mass index 25-29 - overweigh t 527276181 Active 2016 Bhavya Panda PA-C Attn: Accounting ,[address] [place], [address] , [place] - [facility] 7 11:02:23 Candidias is of vagina 56965815 Active 2016 Bhavya Panda PA-C Attn: Accounting ,[address] [place], [address] , [place] - [facility] 7 09:37:00 Problem Notes None recorded. Procedures Surgical History Date Name Laterality Status Provider Name and Address Organization Details Recorded Time 02/10/2018 Date of Last Pap Smear completed La Manrique [place] - [facility] 02/10/2018 12:01:51 Imaging Results Imaging Date Name Status LastModified by Organiz ation Details LastModified Time 01/08/2025 US, obstetric, 1st trimester completed [facility] ([facility]) [address], [place], [address], 01/13/2025 17:44:42 Procedure Notes None recorded. Medical [...] Updated DateTime 3 144.78 cm 29.4 kg/m2 09882.5 6 g 98 [degF] 99 % 99 [...] Updated DateTime 4 144.78 cm 29.2 kg/m2 20613.9 7 g 97 % 97 % 74 /min 114 mm[Hg] 76 mm[Hg] Ann Quinn MA [facility] 4 15:25:25 Date Recorded Body height Body mass index (BMI) Body weight Oxygen saturation Oxygen saturation in Arterial blood by Pulse oximetry Heart rate Systolic blood pressure Diastolic blood pressure Provider Name and Address Organization Details Last Updated DateTime 5 144.78 cm 28.1 kg/m2 67381.0 1 g 98 % 98 % 73 /min 118 mm[Hg] 68 mm[Hg] Ana Luisa Tamayo MA [facility] 5 16:58:38 Date Recorded Body height Body mass index (BMI) Body weight Oxygen saturation Oxygen saturation in Arterial blood by Pulse oximetry Heart rate Body temperature Systolic blood pressure Diastolic blood pressure Provider Name and Address Organization Details Last Updated DateTime 5 144.78 cm 28.3 kg/m2 32017.1 6 g 98 % 98 % 76 /min 97.9 [degF] 118 mm[Hg] 64 mm[Hg] Ana Luisa Tamayo MA [facility] 5 17:17:09 Date Recorded Body height Body temperature Body mass index (BMI) Body weight Oxygen saturation Oxygen saturation in Arterial blood by Pulse oximetry Heart rate Systolic blood pressure Diastolic blood pressure Provider Name and Address Organization Details Last Updated DateTime 5 144.78 cm 97.2 [degF] 28.8 kg/m2 51197.1 9 g 98 % 98 % 84 /min 116 mm[Hg] 72 mm[Hg] Heather Doshi [facility] 5 17:15:55 Social History Question Answer Notes LastModified by Organizat ion Details LastModified Time Tobacco Smoking Status Never Smoker Norma Gallardo MA null, [facility] 10/24/2015 17:14:19 Do You Have An Advance Directive? No [email or web address] Information not available 10/24/2015 What Is Your Level Of Alcohol Consumption? None Information not available 10/24/2015 If You Are , What Was Your Level Of Alcohol Consumption Prior To ? None Information not available 10/24/2015 Is Anesthesia Consult Planned? Yes Information not available 10/24/2015 Plan No Information no t available 10/24/2015 Is Blood Transfusion Acceptable In An Emergency? Yes Information not available 10/24/2015 What Is Your Level Of Caffeine Consumption? Moderate Soda [email or web address] Information not available 12/02/2015 Live With Cats/exposure To Cat Litter No Information not available 10/24/2015 How Much Tobacco Do You Chew? None Information not available 10/24/2015 Are You Currently Employed? Yes Information not available 10/24/2015 What Type Of Diet Are You Following? 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 01/13/2025 [email or web address] Information not available 01/13/2025 How Many Children [...] Yes Information not available 10/24/2015 Supplements Vitamin [email or web address] Information not available 12/02/2015 Has Tobacco Cessation Counseling Been Provided? No [email or web address] Information not available 12/30/2018 On What Date [...] Problems N Kidney or Bladder Problems N Lung Disease N Blood Clots N Depression N GI Problems N Acne Y Breast Problem N Eating Disorder N Anemia N Anesthesia Complications N Headaches/Migraines N Ovarian Cancer N Diabetes N Anxiety Disorder N Muscle, Joint, or Bone Problems N Blood Transfusions N Seizures/Epilepsy N Polyps N Infertility N Acid Reflux (GERD) N Cancer N Urinary Tract Infection Y Abuse/Domestic Violence N Asthma N Substance Abuse N Endometriosis N High Cholesterol N Hepatitis N Liver Disease N Heart Disease N Pre-Eclampsia N Osteoporosis N Chicken Pox Y Gynecological History Statement/Question Response Abnormal Pap N [...] virus, quadrivalent, preservative 6 completed Not Available [facility] 11/07/2019 02:46:38 Tdap 6 completed Not Available [facility] 11/07/2019 02:43:45 Past Encounters Encounter ID Performer Location Encounter Start Date Encounter Closed Date Diagnosis/Indication Diagnosis SNOMED-CT Code Diagnosis ICD10 Code Diagnosis Note [id number] MD Nelson Vizcaino ([facility]) [address] [place] [address] [id number] 10/24/2015 16:02:25 10/24/2015 17:46:08 Normal 75634113 Z34.93 Insufficie care 8023193262 109 O09.32 Active or passive immunization 638355783 Z23 Administra tion of influenza vaccine 23146386 Z23 [id number] [facility] [address] [place] [address] [id number] 0 12/02/2015 15:27:35 12/02/2015 16:12:01 Normal 33319513 Z34.93 [id number] [facility] [address] [place] [address] [id number] 02/22/2016 10:39:49 02/22/2016 13:38:51 care 593942966 Z39.2 state 6919130 1 Z39.2 Z11.51 Uses depot contraception 737617555 Z30.8 [id number] [facility] [address] [place] [address] [id number] 05/18/2016 15:48:09 05/23/2016 15:32:34 Uses depot contraception 355458567 Z30.42 [id number] [facility] [address] [place] [address] [id number] 08/14/2016 16:01:48 08/15/2016 11:53:16 Uses depot contraception 813946296 Z30.8 [id number] MD Nelson Miller ([facility]) [address] [place] [address] [id number] 12/03/2016 08:26:11 12/03/2016 17:01:13 Vaginitis 39116481 N76.0 Will check swabs Contraception care 34710 5005 Z30.40 Body mass index 25-29 - overweight 861620742 Z68.29 Advised 30 minutes of exercise 5 days/week Advised to not drink her calories Advised 3 balanced meals/day with plenty of fruits and vegetables [id number] MD Neslon Vizcaino ([facility]) [address] [place] [address] [id number] 02/10/2018 10:44:34 02/10/2018 12:55:50 Gynecologic examination 32459705 Z01.419 Exposure t o sexually transmissible disorder 182396232 Z20.2 Uses depot contraception 188173317 Z30.8 [id number] DANIELLA Glaser ([facility]) [address] [place] [address] [id number] 04/25/2018 09:48:52 04/28/2018 12:35:44 Suprapubic pain 953863185 R10.33 Per patient had a w/u at [facility] - will send for ER note and determinie f/u based on labs Advised office does not do vaginal massages Body mass index 25-29 - overweight 537032107 Z68.27 Advised 30 minutes of exercise 5 days/week Advised to not drink her calories Advised 3 balanced meals/day with plenty of fruits and vegetables [id number] MD [facility] (FINANCIAL AID) [address] [place] [address] 52910-276 0 12/30/2018 16:33:30 12/31/2018 12:37:41 Exposure to sexually transmissible disorder 972741237 Z20.2 Vaginitis 65728488 N76.0 Family latasha nning surveillance 910205228 Z30.09 Candidiasis of vagina 72 224292 B37.3 Uses depot contraception 827918316 Z30.8 [id number] Chago Sainz MD [facility] (Adult [facility]) [address] [place] [address] 25531-040 0 08/05/2023 13:40:42 08/06/2023 16:05:50 Pain of multiple joints 43986721 M25.50 Body mass index 25-29 - overweight 702511502 Z68.27 [id number] Lexie Claire MD [facility] [address] [place] [address] 26180-939 0 01/07/2024 15:17:30 01/07/2024 20:11:02 Screening for malignant neoplasm of cervix 768909211 Z12.4 Venereal d isease screening 862748461 Z11.3 [id number] MD [facility] (Adult Med) [address] [place] [address] 96442-118 0 11/03/2024 16:49:21 11/25/2024 12:22:28 Overweight 576244627 E66.3 28.1 Advanced m aternal age 070424673 O09.512 Routine an tenatal care 875932281 Z34.92 LMP 07/13/24EDD : 04/20/25New OB labs ordered todayOB U/S orderedRef erral to MFM- Advanced Maternal Age- for genetic counseling and Labor precaution s discussed- handouts given to patientRTC 1-2 weeks for PAP Nausea 405626055 R11.0 Start zofran 4mg q8hr PRN for nausea [id number] MD [facility] (Adult Med) [address] [place] [address] [phone] 11/24/2024 17:09:15 12/01/2024 12:14:32 Routine care 836768989 Z34.92 LMP 07/13/24EDD : 04/20/25Pt to picker packer and start taking vitaminsPt to schedule and get U/S donePt to get labs done ordered at last OV]Discuss ed labor precaution sRTC 4 week for OB Overweight 519231620 E66 .3 28.3 Nausea and vomiting in 5351661294 O21.9 start ondansetro n 8mg BID PRN [id number] Shahram Castellon MD [facility] (Adult Med) [address] [place] [address] 01/13/2025 17:05:05 01/14/2025 14:09:02 Routine care 393324762 Z34.93 ENRIQUE: 04/20/25Pt never got OB labs donePt to c/w vitaminsDi scussed labor precaution sReferral to OB for delivery- Pt wants to deliver at [facility] Depression screening 171 098149 Z13.31 PHQ9- {{Negative * Positive Mild Mode rate Sever e}} (2 out of 27) Mental hea lth screening 679880536 Z13.39 GAD7- {{Negative * Positive Mild Mode rate Sever e}} (0 out of 21) Overweight 209934005 E66 .3 28.8 Health Concerns Section Related [...] SCHEDULE - DISCOUNT Angelique Huntley 01/13/2025 1 [place]: [facility] Angelique Huntley [id number] Angelique Huntley Notes Date Note Type Note Provider Name and Address Organization Details Recorded Time 08/05/2023 text/html Pain in back, hands and shoulders x 1 mth Chago Sainz MD Attn: Accounting,[address] [place], [address], [facility] 08/05/2023 14:44:36 01/07/2024 text/html here for PAP, never had abnormal PAP, periods regular, no vaginal discharge, non smoker, no female cancers in family, one partner, has occasional mild back pain related to work, has seen doctor for it Lexie Claire MD Attn: Accounting,[address] [place], [address], [facility] 01/07/2024 17:30:32 11/03/2024 text/html 34 y/o F here for test. Pt states LMP was around 07/13/24. Pt states she did a test at home and it was positive. Pt has been having nausea that has not let her eat all day at times. Denies vomiting, abdominal pain, bleeding, cramping, AGUIAR, SOB, CP. Shahram Castellon MD Attn: Accounting,[address] [facility], [place], [address], [facility] 11/24/2024 16:29:40 11/24/2024 text/html See OB worksheet Shahram bryant MD Attn: Accounting,[address] [facility], [place], [address], [facility] 11/25/2024 18:22:45 OBGyn Episode Ob Episode Information Episode Created Date Number of Fetuses Patient Bloodtype Patient rh Status Prepregnancy Weight lbs Domestic Partner Domestic Partner Phone Father Name Web Services Architect Status 11/03/19 25 1 OPEN Fetus Data First Name Last Name Admitted to NICU Weight (g) Sex Living Outcome Pediatric Complications Fetus ID Race Codes Race Delivery Type [id number] Enrique Calculation Initial Enrique Date Initial Exam Date Initial Exam Provider Initial Ultrasound Date Last Menstrual Period Date Ultra Sound Weeks Gestation 03/16/2025 11/03/2024 [email or web address] 01/08/2025 07/13/2024 30 Eighteen To Twenty Week Enrique Update Ultra Sound Date Fundal Height At Umbil Quickening Date Ultra Sound Latest Weeks Gestation Final Enrique Confirmed By Final Enrique Confirmed Date Final Enrique Date Ultra Sound Latest Days Gestation 0 [email or web address] 01/13/2025 03/16/20 25 0 Pre- Flowsheet Flowsheet Date 11/03/2024 Ramirez Score Blood Edema Fundus Height Fundus Units Glucose Ketones Leukocytes Nitrite Labor Signs Protein Cervic Dilation Cervic Effacement Cervic Station neg none 15.5 wks none negative neg Type Weight in lbs Pre/Post Dialysis Refused With clothes 130.640130465944 BP Diastolic BP Location Tested BP Systolic BP Type 68 R arm 118 sitting Fetus Heart Rate Present A 154 Present Fetus Movement Comments LMP 07/13/24EDD: 04/20/25New OB labs ordered todayOB U/S orderedReferral to MFM- Advanced Maternal Age- for genetic counselingPregnancy and Labor precautions discussed- handouts given to patientRTC 1-2 weeks for PAPStart Zofran q8h PRN Flowsheet Date 11/24/2024 Ramirez Score Blood Edema Fundus Height Fundus Units Glucose Ketones Leukocytes Nitrite Labor Signs Protein Cervic Dilation Cervic Effacement Cervic Station neg none 19 cm none negative neg Type Weight in lbs Pre/Post Dialysis Refused With clothes 130.913348676565 BP Diastolic BP Location Tested BP Systolic BP Type 64 R arm 118 sitting Fetus Heart Rate Present A 156 Fetus Movement A Yes Comments 34-year-old female here for follow-up OB visit. Patient is complaining of increased nausea and vomiting. Patient denies taking vitamins. Patient does confirm FM. Denies abdominal cramping, vaginal bleeding, CP.Plan:LMP 07/13/24EDD: 04/20/25Pt to picker packer and start taking vitaminsPt to schedule and get U/S donePt to get labs done ordered at last OVDiscussed labor precautionsRTC 4 week for OB Flowsheet Date 01/13/2025 Ramirez Score Blood Edema Fundus Height Fundus Units Glucose Ketones Leukocytes Nitrite Labor Signs Protein Cervic Dilation Cervic Effacement Cervic Station neg none none negative trace Type Weight in lbs Pre/Post Dialysis Refused With clothes 133.861930186620 BP Diastolic BP Location Tested BP Systolic [...] never got OB labs done.ENRIQUE: 04/20/25Pt to picker packer and start taking vitaminsDiscussed labor precautionsReferral to OB Menstrual History Last Menstrual Date Menses Monthly On Bcp Conception Prior Menses Frequency Hcg Plus Date Menarche Onset Age 0907/13/2024 true false 5 17 Genetic Screening And Infection History Question Response Note Patient's Age Will Be 35 Years Or Older At Estim ated Date of Delivery true Thalassemia (Surinamese, Yoruba, Mediterranean, Or Background): MCV < 80 false Neural Tube Defect (Meningomyelocele, Spina Bifi da, Or Anencephaly) false Congenital Heart Defect false Down Syndrome false Tal-Sachs (eg, Anglican, Cajun, Faroese-Laurel) f alse Dick Disease false Sickle Cell [...] ed By 11/03/2024 Anticipated course of care [id number] 11/03/2024 Alcohol hbriil61 11/03/2024 Intimate partner violence op erez46 11/03/2024 Environmental/work hazards o perez46 11/03/2024 Screening for aneuploidy ope rez46 11/03/2024 Nutrition counseling ; special diet; dietary precautions (mercury, listeriosis) 11/03/2024 Childbirth classes/hospital facilities cgahxt04 11/03/2024 HIV and other routine tests khorvq38 11/03/2024 Risk factors identif ied by history 11/03/2024 Weight gain counseling opere z46 11/03/2024 Exercise mnmoke53 11/03/2024 Teratogens tceumf80 11/03/2024 Use of any medicatio ns (including supplements, vitamins, herbs, or OTC drugs) zbjlfu43 11/03/2024 ejibnm22 11/03/2024 Sexual activity vpanxh98 11/03/2024 Tobacco/smoking cess ation counseling (ask, advise, assess, assist, and arrange) qxoddc22 11/03/2024 Illicit/recreational drugs o perez46 11/03/2024 Dental care vexsgw16 11/03/2024 Travel vuvybd10 11/03/2024 Seat belt use yidfwm13 11/03/2024 Indications for ultrasonography zpyeig72 11/03/2024 Avoidance of saunas or hot tubs tsujit34 11/03/2024 Toxoplasmosis precautions (cats/raw meat) fmypue30 Second Trimester Discussed Date Discussion Item Discussion Note Discuss ed By 01/13/2025 Selecting a care provider xkjubc66 01/13/[address] anning/tubal sterilization gvwywd62 01/13/2025 Depression screening (when indicated) 01/13/2025 Abnormal lab values kytukx19 01/13/2025 Signs and symptoms of labor oxoefl89 01/13/2025 Intimate partner violence op erez46 01/13/2025 Tobacco/smoking cess ation counseling (ask, advise, assess, assist, and arrange) ieyijq31 Third Trimester Discussed Date Discussion Item Discussion [...] Domestic Partner Domestic Partner Phone Father Name Web Services Architect Status 10/24/19 16 1 A Positive 100 Rema Johnson CLOSED Fetus Data First Name Last Name Admitted to NICU Weight (g) Sex Living Outcome Pediatric Complications Fetus ID Race Codes Race Delivery Type Abdifatah Yosvanymichelle souza Estrella ro false 3090.09 55 M Full Term 84379 2106-3 White Vaginal Only Problems Problem Notes Problem Name Start Date End Date Resolution Snomed Code Not e Insufficient care 103 [id number] Anemia 537156776 Vitamin D deficiency 58783751 Enrique Calculation Initial Enrique Date Initial Exam [...] Type Weight in lbs Pre/Post Dialysis Refused 117.357760086538 BP Diastolic BP Location Tested BP Systolic [...] At Estimated Date of Delivery false Thalassemia (Surinamese, Yoruba, Mediterranean, Or Background): MCV < 80 false Neural Tube Defect (Meningom yelocele, Spina Bifida, Or Anencephaly) false Congenital Heart Defect false Down Syndrome false Tal-Sachs (eg, Anglican, Cajun, Faroese-Laurel) f alse Dick Disease false Sickle Cell Disease Or Trait () false Hemophilia Or Other Blood Disorders false Muscular Dystrophy false Cystic Fibrosis false Camp's Chorea false Mental Retardation/Autism false If Yes, [...] Selecting a care provider Dr Otis Mccormick [email or web address] 12/02/[address] anning/tubal sterilization Third Trimester Discussed Date Discussion Item Discussion Note Discuss ed By 12/02/2015 Anesthesia plans Epiduarl ikoqukai67 12/02/2015 Circumcision No ykoqftwa13 12/02/2015 Both epqphblb73 12/02/2015 depression No history re tt27 12/02/2015 [...] Domestic Partner Domestic Partner Phone Father Name Web Services Architect Status 10/24/19 16 1 CLOSED Fetus Data First Name Last Name Admitted to NICU Weight (g) Sex Living Outcome Pediatric Complications Fetus ID Race Codes Race Delivery Type 2721.55 2 F Full Term 13434 Standard Vaginal Delivery Enrique Calculation Initial Enrique Date Initial Exam Date Initial Exam Provider Initial Ultrasound Date Last Menstrual Period Date Ultra Sound Weeks Gestation 0 Eighteen To Twenty Week Enrique Update Ultra Sound Date Fundal Height At Umbil Quickening Date Ultra Sound Latest Weeks Gestation Final Enrique Confirmed By Final Enrique Confirmed Date Final Enrqiue Date Ultra Sound Latest Days Gestation 0 [...] Domestic Partner Domestic Partner Phone Father Name Web Services Architect Status 10/24/19 16 1 CLOSED Fetus Data First Name Last Name Admitted to NICU Weight (g) Sex Living Outcome Pediatric Complications Fetus ID Race Codes Race Delivery Type 2721.55 2 F Full Term 99085 Standard Vaginal Delivery Enrique Calculation Initial Enrique [...] Discharge Date Comments 7 [facility]- [facility]ural [facility] Discharge Information Feeding Method Contraceptive Method Maternal HG B and HCT Levels
--- OUTSIDE RECORDS SUMMARY | 2025-02-20 21:56 | XMS_ITS | Continuity of Care Document ---
Author Organization [employer] [facility] Address [address] [place] [address] Phone Care Team Providers Care Hospice Coordinator Name Role Phone Unavailable Unavailable Unavailable Allergies, [...] molecular target. To order alternatetarget test use 79339 (C. trachomatis) [place] [address] (N. gonorrhoeae). NEISSERIA GONORRHOEAE RNA, TMA 2014 14:34:0 0 NOT DETECTED NOT DETECTED N Final [id number] 2014 14:34:0 0 SEE NOTE Final This test was performed using the APTIMA COMBO2 Assay([employer] The analytical performance characteristics of this assay, when used to test SurePath specimens havebeen determined by [employer]. Test performed at [facility] [id number] [place] [address]Qclgntlf: NATE RASHID DO,MPH Panel Description: Trichomon as vaginalis rRNA [Presence] in Specimen by CHAD with probe detection Final SURESWAB(R) TRICHOMONAS VAGINALIS RNA, QL, TMA 2014 14:34:0 0 NOT DETECTED NOT DETECTED N Final This test was performed using the APTIMA(R) Trichomonasvaginalis assay (Gen[employer]Probe(R)). For more information on this test, go to:http://education.GameFly/f aq/TrichomonastmaTest performed at [facility] [id number] [place] [address]Lmnevamb: NATE RASHID DO,MPH Panel Description: HCG ( Test) - Urine - POC Final - Urine 2014 16:23:1 1 Negative Negative Final Advance Directives Directive Yes / No Effective Date File Name No Information Encounters Encounter Description Practice Location Reason(s) For Visit Diagnoses Date Provider Providers Copied on Encounter OFFICE/OUTPA TIENT VISIT, EST [facility], [address], [place], [place], [id number] , tel:[phone] Giuliana On [place] STI exposure (chief complaint) ChlamydiaScreening for alcoholism 5 No Information Family History Family Member Type Diagnosis Age At Onset No Information Payers Payer name Insurance type Covered democrat ID Authoriza tion(s) No Information Social History [...] Mental Status Date Cognitive Assessment Orientation - [place] ed to time, place, person, situation. Patient Care Teams Name Effective Dates (start - stop) Status Members No Information
--- OUTSIDE RECORDS SUMMARY | 2025-02-20 22:24 | XMS_ITS | Clinical Summary ---
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 Gender Identity Female 11/28/2020 9:46 AM RENOVATOR MACHINE OPERATOR Sexual Orientation Not on file Obstetrics History [...] Comments Blood Pressure 126/82 12/15/2020 3:08 PM RENOVATOR MACHINE OPERATOR Pulse - - Temperature - - Respiratory Rate - - Oxygen Saturation - - Inhaled Oxygen Concentration - - Weight 57.3 kg (126 lb 4 oz) 12/15/2020 3:08 PM RENOVATOR MACHINE OPERATOR Height 152.4 cm (5') 12/15/2020 3:08 PM RENOVATOR MACHINE OPERATOR Body Mass Index 24.66 12/15/2020 3:08 PM RENOVATOR MACHINE OPERATOR Plan of Treatment Not on file Care Teams Water Plant Maintenance Mechanic Relationship Specialty Start Date End Date No, Physician PCP - General 11/28/20
--- OUTSIDE RECORDS SUMMARY | 2025-02-20 22:24 | XMS_ITS | Continuity of Care Document ---
Author Organization [employer] [facility] Address [address] [place] [address] Phone Care Team Providers Care Regulatory Affairs Specialist Name Role Phone Unavailable Unavailable Unavailable Allergies, [...] molecular target. To order alternatetarget test use 95910 (C. trachomatis) [place] [address] (N. gonorrhoeae). NEISSERIA GONORRHOEAE RNA, TMA 2014 14:34:0 0 NOT DETECTED NOT DETECTED N Final [id number] 2014 14:34:0 0 SEE NOTE Final This test was performed using the APTIMA COMBO2 Assay([employer].). The analytical performance characteristics of this assay, when used to test SurePath specimens havebeen determined by [employer]. Test performed at [facility] [id number] [place] [address]Mindfkbx: NATE RASHID DO,MPH Panel Description: Trichomon as vaginalis rRNA [Presence] in Specimen by CHAD with probe detection Final SURESWAB(R) TRICHOMONAS VAGINALIS RNA, QL, TMA 2014 14:34:0 0 NOT DETECTED NOT DETECTED N Final This test was performed using the APTIMA(R) Trichomonasvaginalis assay (Gen-Probe(R)). For more information on this test, go to:http://education.Platypus TV/f aq/TrichomonastmaTest performed at [facility] [id number] [place] [address]Iysjdjei: NATE RASHID DO,MPH Panel Description: HCG ( Test) - Urine - POC Final - Urine 2014 16:23:1 1 Negative Negative Final Advance Directives Directive Yes / No Effective Date File Name No Information Encounters Encounter Description Practice Location Reason(s) For Visit Diagnoses Date Provider Providers Copied on Encounter OFFICE/OUTPA TIENT VISIT, EST [facility], [address], [place], [place], [id number] , tel:[phone] Giuliana On [place] STI exposure (chief complaint) ChlamydiaScreening for alcoholism 5 No Information Family History Family Member Type Diagnosis Age At Onset No Information Payers Payer name Insurance type Covered republican ID Authoriza tion(s) No Information Social History [...] Mental Status Date Cognitive Assessment Orientation - [place] ed to time, place, person, situation. Patient Care Teams Name Effective Dates (start - stop) Status Members No Information
--- OUTSIDE RECORDS SUMMARY | 2025-02-20 22:24 | XMS_ITS | Referral Summary ---
Author Organization [facility] Address [address] [place] [address] Care Team Providers Care Supervisor Pleating Name Role Phone No, Physician Primary Care Provider [phone] Allergies No known active allergies Medications triamcinolone [...] on file Legal Sex Female 9:41 AM BRICKLAYER TENDER Gender Identity Female 11/28/2020 9:46 AM BRICKLAYER TENDER Sexual Orientation Not on file Last Filed Vital Signs Vital Sign Reading Time Taken Comments Blood Pressure 126/82 12/15/2020 3:08 PM BRICKLAYER TENDER Pulse - - Temperature - - Respiratory Rate - - Oxygen Saturation - - Inhaled Oxygen Concentration - - Weight 57.3 kg (126 lb 4 oz) 12/15/2020 3:08 PM BRICKLAYER TENDER Height 152.4 cm (5') 12/15/2020 3:08 PM BRICKLAYER TENDER Body Mass Index 24.66 12/15/2020 3:08 PM BRICKLAYER TENDER Plan of Treatment Not on file Care Teams Supervisor Pleating Relationship Specialty Start Date End Date No, Physician PCP - General 11/28/20
[2025-02-20 22:27] VITALS: BMI 31.7
--- NOTE | 2025-02-20 22:27 | LDADM ---
This patient, Angelique Huntley, was admitted to Labor/Delivery/Recovery 106 on 02/20/25 at 21:41. Plans for labor, pain management and were discussed with patient. Patient/family oriented to hospital policies and general routines including ID bracelet, bed and alarms, visiting hours, pain management, procedures, bathroom and other care routines, personal items, smoking policy, room service/diet and guest tray routines, security routines, and visiting hours. Patient/Family are encouraged to report perceived risks to care and to ask questions if they do not understand what they are told or what they should do. See OBIX for further documentation.
[2025-02-20 22:43] LABS: Basophils Percent Auto 0.4 % (0.2-1.2); Eosinophils Absolute Auto 0.1 K/mm3 (0-0.3); Eosinophils Percent Auto 0.6 % (0-4.4); Hematocrit 31.6 % (37.0-47.0); Hemoglobin 10.1 g/dL (12.0-15.0); Immature Granulocyte Absolute 0.06 K/mm3 (0.00-0.031); Immature Granulocyte Percent A 0.7 % (0-0.5); Lymphocytes Absolute Auto 2.68 K/mm3 (0.9-3.2); Lymphocytes Percent Auto 31.5 % (18.3-44.2); Mean Corpuscular Hemoglobin 27.7 pg (26-34); Mean Corpuscular Volume 86.6 fl (80-100); Mean Platelet Volume 11.8 fl (7.4-10.4); Monocytes Absolute Auto 0.8 K/mm3 (0.1-0.6); Monocytes Percent Auto 8.9 % (2.6-8.5); Neutrophils Absolute Auto 4.9 K/mm3 (1.3-6.7); Neutrophils Percent Auto 57.9 % (45.5-73.1); Platelet Count Result 214 k/mm3 (150-375); Red Blood Count 3.65 M/mm3 (4.2-5.4); Red Cell Distribution Width 13.6 % (11.5-14.5); White Blood Count 8.5 K/mm3 (4.5-10.0)
[2025-02-20] MEDS: AMPICILLIN 2 GM/NS 100 ML 2 GM/100 ML BAG IVPB (23:10)
[2025-02-20] MEDS: LACTATED RINGERS 1,000 ML 125 ML IV CONT (23:11)
[2025-02-20 23:24] LABS: Syphilis IgG/IgM Antibody Negative (Negative)
[2025-02-20 23:37] LABS: HIV 1/2 Ab P24 Ag Result Negative (Negative)
[2025-02-21] VITALS (16 sets, daily range): BP systolic 90–117; BP diastolic 56–79; PULSE 58–85; RESP 16; TEMP 36.3–36.8; O2SAT 100
[2025-02-21] MEDS: fentaNYL CITRATE INJ (*CRX) 100 MCG/2 ML VIAL 50 MCG IV PUSH (03:26)
[2025-02-21] MEDS: AMPICILLIN 1 GM/NS 50 ML 1 GM/50 ML BAG IVPB (03:27)
[2025-02-21] MEDS: OXYTOCIN 30 UNITS/NS 500 ML 30 UNITS/500 ML BAG IV CONT (04:11)
--- NOTE | 2025-02-21 05:23 | WPDHPUPDATE1 ---
History and Physical Update Update Date/Time: 02/21/25 05:23 History and Physical has been reviewed, including an updated exam of the patient. There are NO changes in the patient's condition. Risks, benefits, and alternatives have been discussed and questions answered. Patient agrees to proceed with procedure.
--- NOTE | 2025-02-21 05:23 | WPDOBADMIT ---
Obstetrics - Admit Note Admission Note: record reviewed. No pertinent additions to the history and/or any subsequent changes in the physical findings that are not consistent with the expected course of the were found. Additions to the history and/or subsequent changes in the physical findings follow. None.
--- NOTE | 2025-02-21 05:41 | PM.OBPRVD ---
OB - Vaginal Delivery Note Procedure Delivery date: 02/21/25 Delivery augmentation: Pitocin Delivery monitor: External FHT and External Uterine Route of delivery: Episiotomy description: None Laceration Description: None Specimen: Yes Quantitative Blood Loss (ml): 200 Anesthesia type: None Disposition: Floor Complications: No immediate complications Narrative: Patient prepped and draped in usual manner for this procedure. Maternal expulsive efforts readily deliver vertex on rest of followed. Cord clamped. Placenta delivered spontaneously. Cervix vagina and vulva were inspected with no lacerations or tears. Uterus was well contracted with no bleeding. At this point the procedure was considered terminated with immediate postoperative condition mother and baby both excellent. [place] Baby Gestational Age by Date: 36 Infant gender: Male presentation: vertex position: Right Occiput Anterior Placenta delivery description: Spontaneous Cord Vessel Description: 3 Vessels
[2025-02-21] MEDS: OXYTOCIN 30 UNITS/NS 500 ML 30 UNITS/500 ML BAG 125 UNITS IV CONT (06:10)
[2025-02-21] MEDS: IBUPROFEN 600 MG TABLET PO ×2 (06:41→19:07)
[2025-02-21] MEDS: WITCH HAZEL 40 PADS 1 PAD TOPICAL (06:42)
[2025-02-21] MEDS: BENZOCAINE 20% AER SPR (*SP) 56 GM CAN 1 SPRAY TOPICAL (06:42)
--- NOTE | 2025-02-21 09:15 | PC.NURSE ---
Patient transferred to post room #285 via wheel chair. Support person present. Oriented to unit, room, information board, rooming in, admission packet and security measures. Patient verbalizes understanding. Patient speaks Namibian and her daughter, Joanne, is here as her enlisted advisor per patient request.
[2025-02-22 04:00] VITALS: BP 92/57; PULSE 63; RESP 16; TEMP 36.8; O2SAT 99
[2025-02-22 04:13] LABS: Hematocrit 30.1 % (37.0-47.0); Hemoglobin 9.3 g/dL (12.0-15.0)
--- NOTE | 2025-02-22 04:15 | PC.NURSE ---
During 0 rounds, used the Stratus to communicate with pt about vitals, assessment, blood draw, 's last blood sugar draw and how much she needs to feed the baby. [id number] Ross
--- NOTE | 2025-02-22 05:08 | PC.NURSE ---
During 0500 rounds, used Stratus to communicate with pt about baby's first bath and testing. [id number]
[2025-02-22 07:20] VITALS: BP 89/58; PULSE 63; RESP 16; TEMP 36.3; O2SAT 98
[2025-02-22] MEDS: DOCUSATE SODIUM 100 MG CAPSULE PO (08:44)
[2025-02-22] MEDS: MULTIVIT/MIN/PREN/FOL AC/IRON TABLET 1 TAB PO (08:44)
[2025-02-22] MEDS: POLYSACCHARIDE IRON COMPLEX 150 MG CAPSULE PO (08:44)
[2025-02-22] MEDS: IBUPROFEN 600 MG TABLET PO (08:45)
--- NOTE | 2025-02-22 11:21 | PM.OBDSVD ---
DS: Admitting Diagnosis Discharge Date 02/22/2025 Admitting Diagnosis DS: Discharge Diagnosis Discharge Diagnosis (1) , delivered: Code(s): O80 - Encounter for full-term uncomplicated delivery Status: Acute OB - DS: Summary OB Procedures : None OB Procedures Intrapartum: Spontaneous Vag Delivery OB Procedures: : None Peripartum Data Laceration Description: None Episiotomy description: None Time Spent with Patient Time attestation: Total time spent providing and/or coordinating discharge services: DS: Data Data Completed and Pending Pending studies at discharge: Pending at discharge 02/21/25 06:05 Surgical [PTH] Routine Labs on day of discharge: Labs from last 24 hours 02/22/25 03:52 Hgb 9.3 L Hct 30.1 L Discharge Plan Discharge Discharging Clinician: Deepak Hinton Patient Disposition: Home Activity: no straining, follow weight bearing status and pelvic rest Diet: as tolerated Patient Instructions: Antibiotic Form Patient Language: Slovak Stand Alone Forms: General Discharge Information Follow-up/Referrals: Deepak Hinton MD [Physician] - 4 Weeks Discharge Medications: New ibuprofen 600 mg Tablet 600 mg PO Q6H PRN (Reason: Cramping) Qty: 20 0RF Continued ferrous sulfate [Feosol] 325 mg (65 mg iron) tablet 325 mg PO DAILY Qty: 30 1RF Date of admission: 02/20/25 21:41 Primary Care Provider: PHYSICIAN,CAMPAIGN MARKETING SPECIALIST Admitting Provider: Deepak Hinton Attending physician on admission: Deepak Hinton Condition: Stable
--- NOTE | 2025-02-22 11:24 | PM.OBPNVD ---
OB - PN: Subj Subjective Date/time seen: 02/22/25 11:24 34-year-old female status post vaginal delivery. No complaints or concerns and desires to go home and will be discharged today. Patient also interested in bilateral salpingectomy. We discussed the procedure, as well as permanence failure rate and options which were all declined. This was done through an food trades assistants who was present in the room at the time. Will have her sign appropriate forms at her next visit in the office, and will iain the consultation date as today February 22. OB - PN: Obj Data Labs 02/22/25 03:52 Labs: Laboratory Results - last 24 hr 02/22/25 03:52 Hgb 9.3 L Hct 30.1 L OB - PN A/P Time Spent With Patient Time: Total time spent is greater than 50% in coordination of care (as documented) at patient's floor/unit and/or counseling patient:
--- NOTE | 2025-02-22 16:13 | PCCCNOTE ---
Care Coordination. Pt. referred to CC for other. Spoke with RN, Olesya, who reports initial nurse thought might have bonding issues with baby due to mother needing rest and help from RN. RN today reports no issues bonding with baby and mother doing well caring for all infant needs. Mother denies any discharge resource needs except wanted contact information for WIC, so provided to RN to give to pt. No further CC needs identified.
--- NOTE | 2025-02-22 16:48 | PC.NURSE ---
[id number]. Spoke with patients primary RN Olesya who is macedonian speaking and explains mom is bottle feeding at this time, and is not interested in pumping or latching to the breast at this time. Mom was given education on establishing and milk supply. Mom was encouraged to call for assistance if she decides to latch or if she would like to attempt to pump. Mom was asked if she would like a referral to [facility] and mom confirmed she would like a referral to the [place] office. Resources provided for inpatient and outpatient services with the feeding sheet, mom/baby guide, and name/number written on the communication board. Mother voiced understanding of information and will call if there is a request for assistance.
[2025-02-23 14:45] VITALS: BP 94/61; PULSE 67; RESP 18; TEMP 36.8; O2SAT 100
== END 2025-02-22 17:03 | disposition home or self-care (01) | DRG 560 ==
LOC: ANHLDR 22:22 → ANHOB2 02-21 10:49
PROVIDERS: Admitting Provider Obstetrics & Gynecology; Visit Provider Obstetrics & Gynecology
DX: O60.14X0 Preterm labor third trimester with preterm delivery third trimester, not applicable or unspecified (principal); Z37.0 Single live birth; Z3A.36 36 weeks gestation of pregnancy
CPT/HCPCS: 36415; 85014; 85018; 85025; 86593; 86703; 86850; 86900; 86901; 88307; A9270; G0432; J0290; J2590; J3010; J7120